=== PATIENT | male | born 1960 | race Caucasian/White ===

== ENCOUNTER → 2020-04-25 09:38 | Outpatient (BNVA) | payer SELFPAY | PROVIDERS: PCP Internal Medicine; Visit Provider Internal Medicine ==

== ENCOUNTER 2020-08-04 07:55 | Outpatient (REF) | payer BC, SELFPAY ==
[2020-08-04 09:04] LABS: Estimated Average Glucose 105 mg/dL; Hemoglobin A1c % 5.3 %
[2020-08-04 09:09] LABS: Alanine Aminotransferase 11 U/L (0-40); Albumin Level 4.1 g/dL (3.5-5.0); Alkaline Phosphatase 72 U/L (39-117); Aspartate Amino Transferase 15 U/L (5-37); Bilirubin Direct < 0.2 mg/dL (0.0-0.5); Bilirubin Total 0.3 mg/dL (0.0-1.0); Cholesterol 159 mg/dL; Glucose Fasting 92 mg/dL (60-99); HDL Cholesterol 43 mg/dL; Total Protein 6.8 g/dL (6.5-8.0); Triglycerides 416 mg/dL
[2020-08-04 10:22] LABS: Reflex LDLD? Yes
[2020-08-05 09:08] LABS: LDL Cholesterol Direct 74 mg/dL (<100)
== END 2020-08-04 07:56 | disposition home or self-care (01) ==
LOC: HO.LAB 07:55
PROVIDERS: PCP Internal Medicine; Visit Provider Internal Medicine
DX: R73.03 Prediabetes (principal); E78.00 Pure hypercholesterolemia, unspecified
CPT/HCPCS: 36415; 80061; 80076; 82947; 83036; 83721

== ENCOUNTER 2021-01-30 10:36 | Outpatient (REF) | payer BC, SELFPAY ==
[2021-01-30 10:39] LABS: MANUAL DIFF FLAG NO
[2021-01-30 11:20] LABS: Basophils Absolute Auto 0.1 X10*3/uL (0.0-0.2); Basophils Percent Auto 0.5 % (0-2); Eosinophils Absolute Auto 0.3 X10*3/uL (0.0-0.4); Eosinophils Percent Auto 3.3 % (0-4); Hematocrit 44.1 % (42-52); Hemoglobin 14.6 g/dl (14.0-18.0); Imm Gran Abs Auto 0.03 X10*3/uL (0.00-0.03); Imm Gran Pct Auto 0.3 % (0.0-0.4); Lymphocytes Absolute Auto 3.1 X10*3/uL (1.2-4.9); Lymphocytes Percent Auto 32.7 % (20-40); Mean Corpuscular HGB Conc 33.1 g/dl (31.0-36.0); Mean Corpuscular Hemoglobin 30.9 pg (27.0-33.0); Mean Corpuscular Volume 93.2 fL (80-98); Mean Platelet Volume 10.6 fL (9.4-12.4); Monocytes Absolute Auto 0.9 X10*3/uL (0.1-1.2); Neutrophils Absolute Auto 5.2 X10*3/uL (2.0-8.3); Neutrophils Percent Auto 54.2 % (45-73); Platelet Count 247 X10*3/uL (160-400); Red Blood Count 4.73 X10*6/uL (4.60-5.80); Red Cell Distribution Width 12.2 % (11.0-16.0); White Blood Count 9.6 X10*3/uL (4.8-10.8)
[2021-01-30 11:26] LABS: Estimated Average Glucose 105 mg/dL; Hemoglobin A1c % 5.3 %
[2021-01-30 11:33] LABS: Glucose Urine UA NEG (NEG); Leukocyte Esterase Urine NEG (NEG); Nitrite Urine NEG (NEG); Specific Gravity - Urine <= 1.005 (1.005-1.025); Urine Blood NEG (NEG); Urine Ketones NEG (NEG); Urine Protein NEG (NEG-TRACE)
[2021-01-30 11:51] LABS: Appearance Urine CLEAR; Color Urine YELLOW
[2021-01-30 12:00] LABS: Alanine Aminotransferase 17 U/L (0-40); Albumin Level 4.2 g/dL (3.5-5.0); Alkaline Phosphatase 64 U/L (39-117); Anion Gap 15 (12-20); Aspartate Amino Transferase 16 U/L (5-37); Bilirubin Total < 0.2 mg/dL (0.0-1.0); Blood Urea Nitrogen 13 mg/dL (9-16); Calcium 9.1 mg/dL (8.4-10.2); Carbon Dioxide 28 mmol/L (22-29); Chloride 101 mmol/L (96-108); Cholesterol 155 mg/dL; Estimated Glomerular Filt Rate > 60; Glucose Fasting 102 mg/dL (60-99); HDL Cholesterol 39 mg/dL; LDL Cholesterol Calculated 77 mg/dl; Potassium 3.9 mmol/L (3.3-5.1); Sodium 140 mmol/L (135-145); Total Protein 6.9 g/dL (6.5-8.0); Triglycerides 199 mg/dL
[2021-01-30 12:06] LABS: PSA,Total (Free>4and<10) 0.63 ng/mL (0.00-4.00)
[2021-01-30 12:10] LABS: Creatinine Urine 68.99 mg/dL; Microalbumin Urine < 5.0 mg/L
[2021-01-30 12:41] LABS: Reflex LDLD? No
== END 2021-01-30 10:37 | disposition home or self-care (01) ==
LOC: HO.LNP 10:36
PROVIDERS: Visit Provider Internal Medicine
DX: Z00.00 Encounter for general adult medical examination without abnormal findings (principal); Z12.5 Encounter for screening for malignant neoplasm of prostate; I10 Essential (primary) hypertension; R73.03 Prediabetes; E78.00 Pure hypercholesterolemia, unspecified
CPT/HCPCS: 80053; 80061; 81003; 82043; 83036; 84153; 85025

== ENCOUNTER → 2021-04-05 08:46 | Outpatient (BNVA) | payer SELFPAY | PROVIDERS: PCP Internal Medicine; Visit Provider Internal Medicine | DX: Z02.79 Encounter for issue of other medical certificate (principal) ==

== ENCOUNTER 2021-08-10 11:48 | Outpatient (REF) | payer MEDICARE, SELFPAY ==
[2021-08-10 12:31] LABS: Estimated Average Glucose 108 mg/dL; Hemoglobin A1c % 5.4 %
[2021-08-10 12:37] LABS: Alanine Aminotransferase 23 U/L (0-40); Alkaline Phosphatase 67 U/L (39-117); Aspartate Amino Transferase 37 U/L (5-37); Bilirubin Direct 0.2 mg/dL (0.0-0.5); Bilirubin Total 0.4 mg/dL (0.0-1.0); Cholesterol 173 mg/dL; Glucose Fasting 113 mg/dL (60-99); HDL Cholesterol 41 mg/dL; LDL Cholesterol Calculated 92 mg/dl; Total Protein 6.7 g/dL (6.5-8.0); Triglycerides 203 mg/dL
[2021-08-10 12:57] LABS: Reflex LDLD? No
== END 2021-08-10 11:49 | disposition home or self-care (01) ==
LOC: HO.LNP 11:48
PROVIDERS: Visit Provider Internal Medicine
DX: R73.03 Prediabetes (principal); E78.00 Pure hypercholesterolemia, unspecified
CPT/HCPCS: 80061; 80076; 82947; 83036

== ENCOUNTER 2021-10-04 08:51 | Outpatient (REF) | payer MEDICARE, SELFPAY ==
--- NOTE | ~2021-10-04 | XR_ITS ---
EXAMINATION: XR KNEES, STANDING AP XR KNEE, LEFT CLINICAL INFORMATION: Knee pain. COMPARISON: Standing AP knees and left knee 07/09/2016. TECHNIQUE: Standing AP view of both knees is performed. Additional axial patella and lateral views of the left knee are also included. FINDINGS: Left: There has been prior total knee arthroplasty. The hardware is intact. There is no fracture, dislocation, destructive process, or osteolysis. No periostitis. No definite suprapatellar effusion. Axial view patella shows no lateralization or tilting. Right: There is narrowing medial knee joint compartment with mild secondary genu varus. No erosive change or visible chondrocalcinosis. Normal bony mineralization. XR/XR knee standing BI IMPRESSION: Left: -Total knee arthroplasty. Hardware intact. No osteolysis. Right: -Degenerative changes medial compartment with joint narrowing and mild secondary genu varus.
--- NOTE | ~2021-10-04 | XR_ITS ---
EXAMINATION: XR KNEES, STANDING AP XR KNEE, LEFT CLINICAL INFORMATION: Knee pain. COMPARISON: Standing AP knees and left knee 07/09/2016. TECHNIQUE: Standing AP view of both knees is performed. Additional axial patella and lateral views of the left knee are also included. FINDINGS: Left: There has been prior total knee arthroplasty. The hardware is intact. There is no fracture, dislocation, destructive process, or osteolysis. No periostitis. No definite suprapatellar effusion. Axial view patella shows no lateralization or tilting. Right: There is narrowing medial knee joint compartment with mild secondary genu varus. No erosive change or visible chondrocalcinosis. Normal bony mineralization. XR/XR knee LT 2V IMPRESSION: Left: -Total knee arthroplasty. Hardware intact. No osteolysis. Right: -Degenerative changes medial compartment with joint narrowing and mild secondary genu varus.
== END 2021-10-04 08:52 | disposition home or self-care (01) ==
LOC: HO.HOSX 08:51
PROVIDERS: Visit Provider Orthopaedic Surgery
DX: M79.605 Pain in left leg (principal)
CPT/HCPCS: 73560; 73565; 99212

== ENCOUNTER 2021-10-30 16:20 | Outpatient (REF) | payer MEDICARE, SELFPAY ==
[2021-10-30 16:23] LABS: MANUAL DIFF FLAG NO
[2021-10-30 16:27] LABS: Basophils Absolute Auto 0.1 X10*3/uL (0.0-0.2); Basophils Percent Auto 0.6 % (0-2); Eosinophils Absolute Auto 0.2 X10*3/uL (0.0-0.4); Eosinophils Percent Auto 2.7 % (0-4); Hematocrit 43.5 % (42.0-52.0); Hemoglobin 14.9 g/dl (14.0-18.0); Imm Gran Abs Auto 0.02 X10*3/uL (0.00-0.03); Imm Gran Pct Auto 0.2 % (0.0-0.4); Lymphocytes Absolute Auto 2.6 X10*3/uL (1.2-4.9); Lymphocytes Percent Auto 31.6 % (20-40); Mean Corpuscular HGB Conc 34.3 g/dl (31.0-36.0); Mean Corpuscular Hemoglobin 32.2 pg (27.0-33.0); Mean Platelet Volume 10.6 fL (9.4-12.4); Monocytes Absolute Auto 0.6 X10*3/uL (0.1-1.2); Monocytes Percent Auto 7.5 % (2-11); Neutrophils Absolute Auto 4.6 x10*3/uL (2.0-8.3); Neutrophils Percent Auto 57.4 % (45-73); Platelet Count 261 X10*3/uL (160-400); Red Blood Count 4.63 X10*6/uL (4.60-5.80); Red Cell Distribution Width 12.2 % (11.0-16.0); White Blood Count 8.1 X10*3/uL (4.8-10.8)
[2021-10-30 16:39] LABS: Alanine Aminotransferase 11 U/L (0-40); Albumin Level 4.1 g/dL (3.5-5.0); Alkaline Phosphatase 67 U/L (39-117); Anion Gap 11 (12-20); Aspartate Amino Transferase 14 U/L (5-37); Bilirubin Total 0.2 mg/dL (0.0-1.0); Blood Urea Nitrogen 12 mg/dL (9-16); Calcium 9.1 mg/dL (8.4-10.2); Carbon Dioxide 27 mmol/L (22-29); Chloride 104 mmol/L (96-108); Estimated Glomerular Filt Rate > 60; Glucose Random 104 mg/dL (60-115); Potassium 4.2 mmol/L (3.3-5.1); Sodium 138 mmol/L (135-145); Total Protein 7.1 g/dL (6.5-8.0)
[2021-10-30 16:59] LABS: PSA,Total (Free>4and<10) 0.72 ng/mL (0.00-4.00); TSH reflex Free T4 1.49 uIU/mL (0.32-4.0)
== END 2021-10-30 16:21 | disposition home or self-care (01) ==
LOC: HO.LNP 16:20
PROVIDERS: Visit Provider Internal Medicine
DX: Z12.5 Encounter for screening for malignant neoplasm of prostate (principal); R63.0 Anorexia
CPT/HCPCS: 80053; 84153; 84443; 85025

== ENCOUNTER 2022-02-04 10:46 | Outpatient (REF) | payer MEDICARE, SELFPAY ==
[2022-02-04 10:50] LABS: MANUAL DIFF FLAG NO
[2022-02-04 12:10] LABS: Basophils Absolute Auto 0.1 X10*3/uL (0.0-0.2); Basophils Percent Auto 0.8 % (0-2); Eosinophils Absolute Auto 0.2 X10*3/uL (0.0-0.4); Eosinophils Percent Auto 3.1 % (0-4); Hemoglobin 14.6 g/dl (14.0-18.0); Imm Gran Abs Auto 0.02 X10*3/uL (0.00-0.03); Imm Gran Pct Auto 0.3 % (0.0-0.4); Lymphocytes Absolute Auto 2.5 X10*3/uL (1.2-4.9); Lymphocytes Percent Auto 33.8 % (20-40); Mean Corpuscular Hemoglobin 31.7 pg (27.0-33.0); Mean Corpuscular Volume 93.5 fL (80.0-98.0); Mean Platelet Volume 10.4 fL (9.4-12.4); Monocytes Absolute Auto 0.7 X10*3/uL (0.1-1.2); Monocytes Percent Auto 9.4 % (2-11); Neutrophils Absolute Auto 3.9 x10*3/uL (2.0-8.3); Neutrophils Percent Auto 52.6 % (45-73); Platelet Count 257 X10*3/uL (160-400); Red Cell Distribution Width 12.5 % (11.0-16.0); White Blood Count 7.5 X10*3/uL (4.8-10.8)
[2022-02-04 12:11] LABS: Appearance Urine CLEAR; Color Urine YELLOW; Glucose Urine UA NEG (NEG); Leukocyte Esterase Urine NEG (NEG); Nitrite Urine NEG (NEG); Specific Gravity - Urine 1.025 (1.005-1.025); Urine Blood NEG (NEG); Urine Ketones NEG (NEG); Urine Protein NEG (NEG-TRACE)
[2022-02-04 12:17] LABS: Estimated Average Glucose 100 mg/dL; Hemoglobin A1c % 5.1 %
[2022-02-04 12:33] LABS: Alanine Aminotransferase 41 U/L (0-40); Alkaline Phosphatase 65 U/L (39-117); Anion Gap 14 (12-20); Aspartate Amino Transferase 24 U/L (5-37); Bilirubin Total 0.4 mg/dL (0.0-1.0); Blood Urea Nitrogen 12 mg/dL (9-16); Calcium 8.6 mg/dL (8.4-10.2); Carbon Dioxide 27 mmol/L (22-29); Chloride 105 mmol/L (96-108); Cholesterol 151 mg/dL; Estimated Glomerular Filt Rate > 60; Glucose Fasting 112 mg/dL (60-99); HDL Cholesterol 43 mg/dL; LDL Cholesterol Calculated 85 mg/dl; Potassium 3.7 mmol/L (3.3-5.1); Sodium 142 mmol/L (135-145); Total Protein 6.5 g/dL (6.5-8.0); Triglycerides 117 mg/dL
[2022-02-04 12:34] LABS: PSA,Total (Free>4and<10) 0.73 ng/mL (0.00-4.00)
[2022-02-04 12:51] LABS: Creatinine Urine 141.58 mg/dL; Microalbum/Creatinine Ratio Ur 4.9 ug/mg cr
[2022-02-04 13:31] LABS: RBC Urine 0 /HPF (0); WBC Urine 0 /HPF (0-4)
== END 2022-02-04 10:47 | disposition home or self-care (01) ==
LOC: HO.LNP 10:46
PROVIDERS: Visit Provider Internal Medicine
DX: Z00.00 Encounter for general adult medical examination without abnormal findings (principal); I10 Essential (primary) hypertension; R73.03 Prediabetes; E78.00 Pure hypercholesterolemia, unspecified; Z12.5 Encounter for screening for malignant neoplasm of prostate
CPT/HCPCS: 80053; 80061; 81001; 82043; 83036; 84153; 85025

== ENCOUNTER 2022-02-18 09:16 | Day surgery (SDC) | payer MEDICARE, SELFPAY ==
[2022-02-12 13:32] VITALS: BMI 26.6
[2022-02-18 09:56] VITALS: BP 116/80; PULSE 77; RESP 16; TEMP 36.8; O2SAT 96
[2022-02-18] MEDS: Lactated Ringers 1,000 ML 50 ML IVCONT (09:57)
[2022-02-18] MEDS: Sodium Phosphate,Mono-Dibasic 133 ML ENEMA PR (09:57)
--- NOTE | 2022-02-18 09:58 | HO.ANESPROP2 ---
HPI - Anesthesia Eval Consult details Narrative: 61 yo male patient for colonoscopy PMFSH Active Problems Active Problems: All Active Problems (Updated 02/18/22 @ 09:42 by Safia Key RN) Pain in left leg (Acute) Polyarthralgia (Acute) Past Medical History Medical History Anxiety Asthma Degenerative arthritis Depression Hypercholesteremia Hypertension Loose left total knee arthroplasty Family History Family history of problems with anesthesia: No Surgical History Surgical History H/O colonoscopy H/O foot surgery History of surgery on arm History of total left knee replacement Hx of hand surgery Hx of knee surgery History of Problems with Anesthesia: No ('Woke up' during last colonoscopy- conscious sedation ) Social History Social History Patient Tobacco Use Status: Former Tobacco user Quit Date: 4 yrs ago Use of substances other than those prescribed or required for medical reasons: No Are you DNR?: No Advance Directives: No Advance Directives Information Provided: Yes Current occupational status: retired [id number] Allergies Allergy/AdvReac Type Severity Reaction Status Date / Time codeine [CODEINE] Allergy Intermediate ITCHING Verified 10/04/21 11:30 Active Medications: Current Medications Lactated Ringer's (Lr) 1,000 mls @ 50 mls/hr IVCONT .Q20H EUGENE Last Admin: 02/18/22 09:57 Dose: 50 mls/hr Sodium Biphosphate/Sodium Phosphate (Sodium Phosphate,[place]-Dibasic 133 Ml Enema) 133 ml RI ONCE PRN PRN Reason: Poor Colonoscopy Prep Results Last Admin: 02/18/22 09:57 Dose: 133 ml Home Medications Medication Instructions Recorded Confirmed Last Taken Type bupropion HCl 300 mg 24 hr tablet, 300 mg PO QAM 10/04/21 02/18/22 02/18/22 07:30 History extended release (Wellbutrin XL) gabapentin 300 mg capsule 300 mg PO DAILY 10/04/21 02/18/22 Unknown History irbesartan 300 1 tab PO DAILY 10/04/21 02/18/22 Unknown History mg-hydrochlorothiazide 12.5 mg tablet metoprolol succinate 50 mg PO DAILY 10/04/21 02/18/2222 07:30 History rosuvastatin 20 mg tablet 20 mg PO BEDTIME 10/04/21 02/18/22 Unknown History trazodone 50 mg tablet 100 mg PO BEDTIME PRN Insomnia 10/04/21 02/18/22 Unknown History clonazepam 2 mg tablet 1 tab PO TID 02/12/22 02/18/22 Unknown History albuterol sulfate 90 mcg/actuation 2 puff inhalation Q4-6H PRN 02/18/22 02/18/22 Unknown History aerosol inhaler Shortness Of Breath Exam Exam Date and Time: February 18, 2022 0958 Height,Weight and Vital Signs: Height 5 ft 9 in Weight 81.647 kg Last Vital Signs Temp 98.2 F 02/18/22 09:56 Pulse 77 02/18/22 09:56 Resp 16 02/18/22 09:56 BP 116/80 02/18/22 09:56 Pulse Ox 96 02/18/22 09:56 O2 Del Method 02/18/22 09:56 Airway Mallampati Class: II TM Dist: >3cm Neck ROM: Full Loose/Missing/Broken Teeth: No Heart: RRR Lungs: Bilateral wheezes Other: Patient states he 'feels congested and voice feels different'. Had his son's dog over the weekend. Will order respiratory treatment Assessment and Plan Assessment Anesthesia Assessment: Anesthesia Plan Discussed and Chart Reviewed Final Anesthetic Review Family History of Problems with Anesthesia: No History of Problems with Anesthesia: No ('Woke up' during last colonoscopy- conscious sedation ) NPO: Yes ASA Class: II Final Preanesthetic Review: No Changes in Pt Med Stat, Meds/Allgs Chart Reviewed, Consent Obtained/Reviewed and Anes Risks/Benef Reviewed Patient Risk: Intermediate Procedure Risk: Low Assessment/Block/Sedation in SS: Assess/Block/Sedation-SS Anesthetic Plan Anesthetic Plan: MAC: Disposition: Standard PACU
--- NOTE | 2022-02-18 10:21 | PC.NURSE ---
fleets x1 due to not much results with prep until this am. given at 0957. results at 1015 were moderate liquid clear to light abrams color.
[2022-02-18] MEDS: Albuterol Sulfate (0.083%) 2.5 MG/3 ML VIAL.NEB INHALE (10:22)
[2022-02-18 10:25] VITALS: PULSE 78; RESP 15; O2SAT 99
[2022-02-18 11:46] VITALS: BP 87/49; PULSE 85; RESP 16; TEMP 36.2; O2SAT 97
--- NOTE | 2022-02-18 11:50 | PM.OP ---
Brief Operative Note Date of Service: 02/18/22 Pre-op diagnosis: Screening Post-op diagnosis: other (Colon polyps) Procedure: Colonoscopy to the cecum with bx/removal of polyp, and cold snare polypectomy x 2 in the transverse colon Surgeon: Donny Winters Anesthesia: MAC Was an Manager Software used for this Procedure?: No Estimated blood loss (mL): 2.0 Pathology: other (A. Ascending colon polyp B. Transverse colon polyps) Condition: stable Disposition: PACU
[2022-02-18 12:04] VITALS: BP 110/62; PULSE 85; RESP 18; TEMP 36.2; O2SAT 94
--- NOTE | 2022-02-18 23:51 | OP_ITS ---
SURGEON: Donny Winters MD INDICATIONS: The patient presents for followup of colorectal cancer screening and personal history of tubular adenoma of the colon. Full consent was obtained from him for this, including risks of bleeding and perforation. PREOPERATIVE DIAGNOSIS: POSTOPERATIVE DIAGNOSIS: PROCEDURE PERFORMED: Colonoscopy to cecum with biopsy, removal of polyp, and cold snare polypectomy. ESTIMATED BLOOD LOSS: COMPLICATIONS: ANESTHESIA: Medications used; monitored anesthesia care. ASSISTANTS: SPECIMENS: PREOPERATIVE DIAGNOSES: Colorectal cancer screening and personal history of tubular adenoma of the colon. POSTOPERATIVE DIAGNOSES: Colorectal cancer screening and personal history of tubular adenoma of the colon, colon polyps, diverticulosis, and internal hemorrhoids. DESCRIPTION OF PROCEDURE: The patient was placed in the left lateral decubitus position. The digital rectal exam revealed no abnormalities. The Olympus videopediatric colonoscope was entered into the rectum and advanced easily to the cecum. Once in the cecum, I did identify normal-appearing cecal pouch with appendiceal orifice and a normal-appearing ileocecal valve. There was transillumination of light deep in the right lower quadrant. The entire cecum and ileocecal valve appeared normal. The scope was slowly withdrawn assessing all mucosal surfaces carefully. Preparation was excellent. In the proximal ascending colon, there was an approximately 3 mm polyp, which was biopsied and completely removed with cold biopsy forceps. In the transverse colon, there were 2 approximately 5 mm polyps, which were each removed by cold snare polypectomy and recovered by suction. The polypectomy sites appeared clean, without any sign of residual polyp nor significant bleeding. I did not visualize any other polyps, colitis, nor angiodysplasia. There was a mild amount of sigmoid diverticulosis. In the rectum, scope was retroflexed visualizing internal hemorrhoids, but no other pathology. The rectal mucosa appeared normal. The scope was straightened and withdrawn from the patient. He tolerated the procedure well and was returned to the recovery area in stable condition. IMPRESSION: 1. Colon polyps. 2. Diverticulosis. 3. Internal hemorrhoids. PLAN: The results of the biopsies will be checked. I would recommend a repeat colonoscopy in 5 years. He was advised not to use any aspirin or NSAIDs for 1 week. MD MERYL Vicente/STEVEL / [phone]
== END 2022-02-18 12:21 | disposition home or self-care (01) ==
PROVIDERS: PCP Internal Medicine; Visit Provider Internal Medicine
PROC: 0DJD8ZZ Inspection of Lower Intestinal Tract, Via Natural or Artificial Opening Endoscopic (ICD-10-PCS; CPT 45378; principal; 2022-02-18 10:30)
DX: Z12.11 Encounter for screening for malignant neoplasm of colon (principal); Z86.010 Personal history of colon polyps; D12.3 Benign neoplasm of transverse colon; K63.5 Polyp of colon; K57.30 Diverticulosis of large intestine without perforation or abscess without bleeding; K64.8 Other hemorrhoids; I10 Essential (primary) hypertension; E78.5 Hyperlipidemia, unspecified; Z79.899 Other long term (current) drug therapy; Z88.8 Allergy status to other drugs, medicaments and biological substances; Z96.652 Presence of left artificial knee joint; Z87.891 Personal history of nicotine dependence
CPT/HCPCS: 45385; 45380; 88305; 94640; J2250

== ENCOUNTER → 2022-03-28 13:47 | Outpatient (BNVA) | payer SELFPAY | PROVIDERS: PCP Internal Medicine; Visit Provider Internal Medicine | DX: Z02.79 Encounter for issue of other medical certificate (principal) ==

== ENCOUNTER 2022-08-06 10:36 | Outpatient (REF) | payer MEDICARE, SELFPAY ==
[2022-08-06 11:23] LABS: Estimated Average Glucose 100 mg/dL; Hemoglobin A1c % 5.1 %
[2022-08-06 11:36] LABS: Alanine Aminotransferase 17 U/L (0-40); Albumin Level 3.7 g/dL (3.5-5.0); Alkaline Phosphatase 60 U/L (39-117); Aspartate Amino Transferase 15 U/L (5-37); Bilirubin Direct 0.2 mg/dL (0.0-0.5); Bilirubin Total 0.5 mg/dL (0.0-1.0); Cholesterol 118 mg/dL; Glucose Fasting 100 mg/dL (60-99); HDL Cholesterol 37 mg/dL; LDL Cholesterol Calculated 59 mg/dl; Total Protein 5.9 g/dL (6.5-8.0); Triglycerides 114 mg/dL
[2022-08-06 11:52] LABS: Reflex LDLD? No
== END 2022-08-06 10:37 | disposition home or self-care (01) ==
LOC: HO.LNP 10:36
PROVIDERS: Visit Provider Internal Medicine
DX: E78.00 Pure hypercholesterolemia, unspecified (principal); R73.03 Prediabetes
CPT/HCPCS: 80061; 80076; 82947; 83036

== ENCOUNTER 2023-02-10 11:11 | Outpatient (REF) | payer MEDICARE, SELFPAY ==
[2023-02-10 11:19] LABS: MANUAL DIFF FLAG NO
[2023-02-10 11:28] LABS: Basophils Absolute Auto 0.1 X10*3/uL (0.0-0.2); Basophils Percent Auto 0.7 % (0-2); Eosinophils Absolute Auto 0.2 X10*3/uL (0.0-0.4); Hematocrit 45.6 % (42.0-52.0); Hemoglobin 15.4 g/dl (14.0-18.0); Imm Gran Abs Auto 0.04 X10*3/uL (0.00-0.03); Imm Gran Pct Auto 0.4 % (0.0-0.4); Lymphocytes Absolute Auto 3.1 X10*3/uL (1.2-4.9); Lymphocytes Percent Auto 29.4 % (20-40); Mean Corpuscular HGB Conc 33.8 g/dl (31.0-36.0); Mean Corpuscular Hemoglobin 31.7 pg (27.0-33.0); Mean Corpuscular Volume 93.8 fL (80.0-98.0); Mean Platelet Volume 10.5 fL (9.4-12.4); Monocytes Absolute Auto 0.8 X10*3/uL (0.1-1.2); Monocytes Percent Auto 7.7 % (2-11); Neutrophils Absolute Auto 6.3 x10*3/uL (2.0-8.3); Neutrophils Percent Auto 59.8 % (45-73); Platelet Count 325 X10*3/uL (160-400); Red Blood Count 4.86 X10*6/uL (4.60-5.80); Red Cell Distribution Width 12.4 % (11.0-16.0); White Blood Count 10.4 X10*3/uL (4.8-10.8)
[2023-02-10 11:29] LABS: Appearance Urine Clear; Color Urine Yellow; Glucose Urine UA Negative (Negative); Leukocyte Esterase Urine Negative (Negative); Nitrite Urine Negative (Negative); Specific Gravity - Urine <= 1.005 (1.005-1.025); Urine Blood Negative (Negative); Urine Ketones Negative (Negative); Urine Protein Negative (Neg-Trace)
[2023-02-10 11:34] LABS: Bacteria Urine None Seen (None Seen); Hyaline Casts Urine 0-2 /LPF (0-2); RBC Urine 0-2 /HPF (0-2); Squamous Epithelial Cell Urine 0-2 /HPF (0-2); WBC Urine 0-5 /HPF (0-5)
[2023-02-10 11:37] LABS: Estimated Average Glucose 94 mg/dL; Hemoglobin A1c % 4.9 % (<6.0)
[2023-02-10 11:38] LABS: Alanine Aminotransferase 23 U/L (0-40); Albumin Level 4.1 g/dL (3.5-5.0); Alkaline Phosphatase 62 U/L (39-117); Anion Gap 14 (12-20); Aspartate Amino Transferase 20 U/L (5-37); Bilirubin Total 0.4 mg/dL (0.0-1.0); Blood Urea Nitrogen 9 mg/dL (9-16); Calcium 9.9 mg/dL (8.4-10.2); Carbon Dioxide 26 mmol/L (22-29); Chloride 107 mmol/L (96-108); Cholesterol 133 mg/dL (<200); Estimated Glomerular Filt Rate > 60; Glucose Fasting 115 mg/dL (60-99); HDL Cholesterol 46 mg/dL (>40); LDL Cholesterol Calculated 69 mg/dL (<100); Potassium 4.2 mmol/L (3.3-5.1); Sodium 143 mmol/L (135-145); Total Protein 7.5 g/dL (6.5-8.0); Triglycerides 90 mg/dL (<150)
[2023-02-10 12:45] LABS: PSA,Total (Free>4and<10) 1.65 ng/mL (0.00-4.00)
[2023-02-10 12:51] LABS: Creatinine Urine 40.38 mg/dL; Microalbumin Urine < 5.0 mg/L
== END 2023-02-10 11:12 | disposition home or self-care (01) ==
LOC: HO.LNP 11:11
PROVIDERS: Visit Provider Internal Medicine
DX: Z00.00 Encounter for general adult medical examination without abnormal findings (principal); Z12.5 Encounter for screening for malignant neoplasm of prostate; I10 Essential (primary) hypertension; E78.00 Pure hypercholesterolemia, unspecified; R73.03 Prediabetes
CPT/HCPCS: 80053; 80061; 81001; 82043; 83036; 84153; 85025

== ENCOUNTER 2023-07-07 09:37 | Outpatient (REF) | payer MEDICARE, SELFPAY | END 2023-07-07 09:38 | disposition home or self-care (01) | LOC: HO.HOSX 09:37 | PROVIDERS: Visit Provider Orthopaedic Surgery | DX: Z13.89 Encounter for screening for other disorder (principal) ==

== ENCOUNTER 2023-08-08 07:19 | Outpatient (REF) | payer MEDICARE, SELFPAY ==
[2023-08-08 08:17] LABS: Estimated Average Glucose 105 mg/dL; Hemoglobin A1c % 5.3 % (<6.0)
[2023-08-08 08:24] LABS: Alanine Aminotransferase 34 U/L (0-40); Alkaline Phosphatase 56 U/L (39-117); Aspartate Amino Transferase 23 U/L (5-37); Bilirubin Direct 0.2 mg/dL (0.0-0.5); Bilirubin Total 0.4 mg/dL (0.0-1.0); Cholesterol 156 mg/dL (<200); Glucose Fasting 102 mg/dL (60-99); HDL Cholesterol 49 mg/dL (>40); LDL Cholesterol Calculated 87 mg/dL (<100); Triglycerides 102 mg/dL (<150)
[2023-08-08 08:34] LABS: Reflex LDLD? No
== END 2023-08-08 07:20 | disposition home or self-care (01) ==
LOC: HO.LAB 07:19
PROVIDERS: PCP Internal Medicine; Visit Provider Internal Medicine
DX: E78.00 Pure hypercholesterolemia, unspecified (principal); R73.09 Other abnormal glucose
CPT/HCPCS: 36415; 80061; 80076; 82947; 83036

== ENCOUNTER 2024-02-09 10:34 | Outpatient (REF) | payer MEDICARE, SELFPAY ==
[2024-02-09 10:38] LABS: MANUAL DIFF FLAG NO
[2024-02-09 11:08] LABS: Basophils Absolute Auto 0.1 X10*3/uL (0.0-0.2); Basophils Percent Auto 1.2 % (0-2); Eosinophils Absolute Auto 0.4 X10*3/uL (0.0-0.4); Eosinophils Percent Auto 4.7 % (0-4); Hematocrit 41.3 % (42.0-52.0); Imm Gran Abs Auto 0.02 X10*3/uL (0.00-0.03); Imm Gran Pct Auto 0.3 % (0.0-0.4); Lymphocytes Percent Auto 39.5 % (20-40); Mean Corpuscular HGB Conc 33.9 g/dl (31.0-36.0); Mean Corpuscular Hemoglobin 31.9 pg (27.0-33.0); Mean Corpuscular Volume 94.1 fL (80.0-98.0); Mean Platelet Volume 10.3 fL (9.4-12.4); Monocytes Absolute Auto 0.8 X10*3/uL (0.1-1.2); Monocytes Percent Auto 10.6 % (2-11); Neutrophils Absolute Auto 3.4 x10*3/uL (2.0-8.3); Neutrophils Percent Auto 43.7 % (45-73); Platelet Count 259 X10*3/uL (160-400); Red Blood Count 4.39 X10*6/uL (4.60-5.80); Red Cell Distribution Width 12.8 % (11.0-16.0); White Blood Count 7.7 X10*3/uL (4.8-10.8)
[2024-02-09 11:22] LABS: Estimated Average Glucose 103 mg/dL; Hemoglobin A1c % 5.2 % (<6.0)
[2024-02-09 11:28] LABS: Appearance Urine Clear; Color Urine Yellow; Glucose Urine UA Negative (Negative); Leukocyte Esterase Urine Negative (Negative); Nitrite Urine Negative (Negative); Specific Gravity - Urine 1.015 (1.005-1.025); Urine Blood Negative (Negative); Urine Ketones Negative (Negative); Urine Protein Negative (Neg-Trace)
[2024-02-09 11:33] LABS: Alanine Aminotransferase 20 U/L (0-40); Albumin Level 3.9 g/dL (3.5-5.0); Alkaline Phosphatase 58 U/L (39-117); Anion Gap 11 (12-20); Aspartate Amino Transferase 18 U/L (5-37); Bilirubin Total 0.2 mg/dL (0.0-1.0); Blood Urea Nitrogen 19 mg/dL (9-16); Calcium 9.1 mg/dL (8.4-10.2); Carbon Dioxide 30 mmol/L (22-29); Chloride 103 mmol/L (96-108); Cholesterol 150 mg/dL (<200); Estimated Glomerular Filt Rate > 60; Glucose Fasting 104 mg/dL (60-99); HDL Cholesterol 44 mg/dL (>40); LDL Cholesterol Calculated 65 mg/dL (<100); Potassium 4.2 mmol/L (3.3-5.1); Sodium 140 mmol/L (135-145); Total Protein 6.8 g/dL (6.5-8.0); Triglycerides 209 mg/dL (<150)
[2024-02-09 11:35] LABS: Bacteria Urine None Seen (None Seen); Hyaline Casts Urine 0-2 /LPF (0-2); RBC Urine 0-2 /HPF (0-2); Squamous Epithelial Cell Urine 0-2 /HPF (0-2); WBC Urine 0-5 /HPF (0-5)
[2024-02-09 11:42] LABS: PSA,Total (Free>4and<10) 0.79 ng/mL (0.00-4.00)
[2024-02-09 11:43] LABS: Creatinine Urine 84.47 mg/dL; Microalbumin Urine < 5.0 mg/L
== END 2024-02-09 10:35 | disposition home or self-care (01) ==
LOC: HO.LNP 10:34
PROVIDERS: Visit Provider Internal Medicine
DX: Z00.00 Encounter for general adult medical examination without abnormal findings (principal); I10 Essential (primary) hypertension; E78.00 Pure hypercholesterolemia, unspecified; R73.09 Other abnormal glucose; Z12.5 Encounter for screening for malignant neoplasm of prostate
CPT/HCPCS: 80053; 80061; 81001; 82043; 82570; 83036; 84153; 85025

== ENCOUNTER 2024-08-16 10:07 | Outpatient (REF) | payer MEDICARE, SELFPAY ==
[2024-08-16 12:04] LABS: Alanine Aminotransferase 25 U/L (0-40); Albumin Level 3.9 g/dL (3.5-5.0); Alkaline Phosphatase 69 U/L (39-117); Aspartate Amino Transferase 40 U/L (5-37); Bilirubin Direct 0.1 mg/dL (0.0-0.5); Bilirubin Total 0.3 mg/dL (0.0-1.0); Cholesterol 167 mg/dL (<200); HDL Cholesterol 56 mg/dL (>40); LDL Cholesterol Calculated 78 mg/dL (<100); Total Protein 7.2 g/dL (6.5-8.0); Triglycerides 169 mg/dL (<150)
--- OUTSIDE RECORDS SUMMARY | 2024-08-16 12:39 | XMS_ITS | Clinical Summary ---
Author Organization [facility] Address [address] [place] [address] Care Team Providers Care Towel Rolling Machine Operator Name Role Phone Unavailable Primary Care Provider Unavailabl e Social History Tobacco Use Types Packs/Day Years Used Date Smoking Tobacco: Never Assessed Sex and Gender Information Value Date Recorded Sex Assigned at Not on file Gender Identity Not on file Sexual Orientation Not on file Plan of Treatment Not on file
--- OUTSIDE RECORDS SUMMARY | 2024-08-16 12:39 | XMS_ITS ---
Author Organization Kyaw Fishman MD Address [address] [place] [phone] Care Team Providers Care Lead Instructor/Flight Attendant Name Role Phone Kyaw Fishman Primary Care Provider REASON FOR VISIT RF Gabapentin Medications Medication SIG (Take, Route, Fr equency, Duration) Notes Start Date End Date Status Gabapentin 300 MG TAKE 1 CAPSULE BY [facility] THREE TIMES DAILY for 30 Active Encounters Encounter Location Date Provider Diagnosis Kyaw Fishman MD 10 [facility] [address] [place] [phone] 08/12/2024 Kyaw Fishman Plan Of Treatment Medication Medication Name Sig Start Date Stop Date Notes Gabapentin 300 MG TAKE 1 CAPSULE BY [facility] THREE TIMES DAILY for 30 Next Appt Details Provider Name:Kyaw thurston, 08/20/2024 10:15:00 AM, [address] [place] [address], [address] [place] [address], [phone], Provider Name:Kyaw thurston, 02/11/2025 07:15:00 AM, [address] [place] [address], [address], [phone], Provider Name:Kyaw Kobe Rigoeunice karena, 02/17/2025 09:30:00 AM, [address], [address], [place], [phone], Progress Notes * Kamran GAUTAMDOB: 9 (64 yo M)Acc No.[id number]:08/12/2024 Patient:?Kamran GAUTAM :1960???Age:64 Y???Sex:Male Address:[address] [place] [id number] * Refills? Refill Gabapentin Capsule, 300 MG, 90 Capsule, TAKE 1 CAPSULE BY MOUTH THREE TIMES DAILY, 30, Refills=12 * true * Date:? Generated for Jennifer germain/Henrry/Kipsmitting on:?08/16/2024 12:39 PM EST
--- OUTSIDE RECORDS SUMMARY | 2024-08-16 12:39 | XMS_ITS ---
Author Organization Kyaw Fishman MD Address [address] [place] [phone] Care Team Providers Care Curriculum Designer Name Role Phone Kyaw Fishman Primary Care Provider [phone] REASON FOR VISIT FLU SHOT Encounters Encounter Location Date Provider Diagnosis Kyaw Fishman MD 10 [facility] [address] [place] [phone] 03/15/2024 Kyaw Fishman Plan Of Treatment Next Appt Details Provider Name:Kyaw thurston, 08/20/2024 10:15:00 AM, [address] [place] [address], [address] [place] [address], [phone], Provider Name:Kyaw thurston, 02/11/2025 07:15:00 AM, [address] [place] [address], [address], [phone], Provider Name:Kyaw thurston, 02/17/2025 09:30:00 AM, [address] [place] [address], [address], [phone], Progress Notes * Kamran GAUTAMDOB: (64 yo M)Acc No.[id number]:03/15/2024 Progress Note Patient:?Kamran GAUTAM Provider:?Kyaw Fishman MD :1960???Age:63 Y???Sex:Male Isaiah e:03/15/2024 Address:[address] [place], [place] [phone] Subjective: * Chief Complaints: * ???1. FLU SHOT. * Medical History:? Objective: * Vitals:? Assessment: Plan: * Treatment: * * The named appointment provid er may or may not be the originator of this progress note, and it is not deemed complete until electronically signed by the appointment provider. Sign off status: Pending * Provider:?Kyaw Fishman MD Date:?0 03/15/2024 Generated for Jennifer germain/Henrry/Stephanieitting on:?08/16/2024 12:39 PM EST
--- OUTSIDE RECORDS SUMMARY | 2024-08-16 12:39 | XMS_ITS ---
Author Organization Kyaw Fsihman MD Address [address] [place] [phone] Care Team Providers Care Cash Poster Name Role Phone Kyaw Fishman Primary Care Provider [phone] REASON FOR VISIT FASTING LIPIDS Encounters Encounter Location Date Provider Diagnosis Kyaw Fishman MD [address] [place] [phone] 08/16/2024 Kyaw Fishman Pure hypercholestero lemia E78.00 and Moderate episode of recurrent major depressive disorder F33.1 Assessments Encounter Date Diagnosis (ICD Code) Assessment Notes Treatment Notes Treatment Clinical Notes Section Notes 08/16/2024 Pure hypercholesterolemia (ICD-10 - E78.00) 08/16/2024 Moderate episode of recurrent major depressive disorder (ICD-10 - F33.1) Plan Of Treatment Pending Test Test Name Order Date Liver Panel 08/16/2024 Lipid Panel with Reflex 08/16/2024 Testosterone, Free/Total 08/16/2024 Next Appt Details Provider Name:Kyaw thurston, 08/20/2024 10:15:00 AM, [address], [address], [place], [place], [phone], Provider Name:Kyaw West ier, 02/11/2025 07:15:00 AM, [address], [address], [place], [phone], Provider Name:Kyaw West [place], 02/17/2025 09:30:00 AM, [address], [address], [place], [phone], Progress Notes * Kamran GAUTAMDOB: (64 yo M)Acc No.[id number]:08/16/2024 Progress Note Patient:?Kamran GAUTAM Provider:?Kyaw Fishman MD :1960???Age:64 Y???Sex:Male Isaiah e:08/16/2024 Address:[address] [place], [place] [phone] Subjective: * Chief Complaints: * ???1. FASTING LIPIDS. * Medical History:? Objective: * Vitals:? Assessment: * Assessment: 1.?Pure hypercholesterolemia - E78.00 (Primary)???2.?Moderate episode of recurrent major depressive disorder - F33.1??? Plan: * Treatment: 2.?Moderate episode of recur rent major depressive disorder?LAB: Testosterone, Free/Total * * The named appointment provid er may or may not be the originator of this progress note, and it is not deemed complete until electronically signed by the appointment provider. Sign off status: Pending * Provider:?Kyaw Fishman MD Date:?0 08/16/2024 Generated for Daniellei jessa/Henrry/eTransmitting on:?08/16/2024 12:39 PM EST
[2024-08-16 13:13] LABS: Reflex LDLD? No
== END 2024-08-16 10:08 | disposition home or self-care (01) ==
LOC: HO.LNP 10:07
PROVIDERS: Visit Provider Internal Medicine
DX: E78.00 Pure hypercholesterolemia, unspecified (principal)
CPT/HCPCS: 80061; 80076

== ENCOUNTER 2024-08-30 12:02 | Outpatient (REF) | payer MEDICARE, SELFPAY ==
--- OUTSIDE RECORDS SUMMARY | 2024-08-30 13:43 | XMS_ITS ---
Author Organization Kyaw Fishman MD Address [address] [place] [phone] Care Team Providers Care Knitting Tester Name Role Phone Kyaw Fishman Primary Care Provider REASON FOR VISIT Testosterone Encounters Encounter Location Date Provider Diagnosis Kyaw Fishman MD [address] [place] [phone] 08/30/2024 Kyaw Fishman Moderate episode of recurrent major depressive disorder F33.1 Assessments Encounter Date Diagnosis (ICD Code) Assessment Notes Treatment Notes Treatment Clinical Notes Section Notes 08/30/2024 Moderate episode of recurrent major depressive disorder (ICD-10 - F33.1) Plan Of Treatment Pending Test Test Name Order Date Testosterone, Free/Total 08/30/2024 Next Appt Details Provider Name:Kyaw thurston, 02/11/2025 07:15:00 AM, [address] [place] [address], [address], [phone], Provider Name:Kyaw thurston, 02/17/2025 09:30:00 AM, 10 [facility], [address] [place] [address], [phone], Progress Notes * Kamran GAUTAMDOB: (64 yo M)Acc No.[id number]:08/30/2024 Progress Note Patient:Kamran ANTONIO Provider:?Kyaw Fishman MD :1960???Age:64 Y???Sex:Male Isaiah e:08/30/2024 Address:[address] [place], [place] [phone] Subjective: * Chief Complaints: * ???1. Testosterone. * Medical History:? Objective: * Vitals:? Assessment: * Assessment: 1.?Moderate episode of recur rent major depressive disorder - F33.1 (Primary)??? Plan: * Treatment: * Procedure Codes:?30027 VENIP UNCT, ROUTINE* * * The named appointment provid er may or may not be the originator of this progress note, and it is not deemed complete until electronically signed by the appointment provider. Sign off status: Pending * Provider:?Kyaw Fishman MD Date:?0 08/30/2024 Generated for Jennifer germain/Henrry/Kipsmitting on:?08/30/2024 01:42 PM EDT
--- OUTSIDE RECORDS SUMMARY | 2024-08-30 13:43 | XMS_ITS ---
Author Organization Kyaw Fishman MD Address [address] [place], [place] [phone] Care Team Providers Care Clip Baker Name Role Phone Kyaw Fishman Primary Care Provider Results Component Value Reference Range Notes Liver Panel Reviewed date:08/16/2024 05:10:00 PM Interpretation: Performing Lab:[facility], [address] [place] [phone] Notes/Report: Bilirubin Total 0.3 0.0-1.0 mg/dL Bilirubin Direct 0.1 0.0-0.5 mg/dL Aspartate Amino Transferase 40 5-37 U/L Alanine Aminotransferase 25 0-40 U/L Total Protein 7.2 6.5-8.0 g/dL Albumin Level 3.9 3.5-5.0 g/dL Alkaline Phosphatase 69 39-117 U/L Lipid Panel with Reflex Reviewed date:08/16/2024 05:26:20 PM Interpretation: Performing Lab:[facility], [address] [place] [phone] Notes/Report: Triglycerides 169 <150 mg/dL Desirable Triglyceride: less than 150 mg/dL Borderline High Triglyceride 150-199 mg/dL High Triglyceride: 200-499 mg/dL Very High Triglyceride: greater than or equal to 5OO mg/dL Cholesterol 167 <200 mg/dL Desirable Cholesterol: less than 200 mg/dL Borderline High Cholesterol: 200-239 mg/dL High Cholesterol: greater than 239 mg/dL LDL Cholesterol Calculated 78 <100 mg/dL Desirable LDL: less than 100 mg/dL Near Optimal/Above Optimal LDL: 110-129 mg/dL Borderline High LDL: 130-159 mg/dL High LDL: 160-189 mg/dL Very High LDL: greater than or equal to 190 mg/dL HDL Cholesterol 56 >40 mg/dL Desirable HDL: greater than 40 mg/dL Note: This HDL assay may give artificially low results in patients with liver disease. REASON FOR VISIT FASTING LIPIDS Encounters Encounter Location Date Provider Diagnosis Kyaw Fishman MD [address] [place] [phone] 08/16/2024 Kyaw Fishman Pure hypercholestero lemia E78.00 and Moderate episode of recurrent major depressive disorder F33.1 Assessments Encounter Date Diagnosis (ICD Code) Assessment Notes Treatment Notes Treatment Clinical Notes Section Notes 08/16/2024 Pure hypercholesterolemia (ICD-10 - E78.00) 08/16/2024 Moderate episode of recurrent major depressive disorder (ICD-10 - F33.1) Plan Of Treatment Pending Test Test Name Order Date Testosterone, Free/Total 08/16/2024 Next Appt Details Provider Name:Kyaw thurston, 02/11/2025 07:15:00 AM, [address] [place] [address], [address], [phone], Provider Name:Kyaw West ier, 02/17/2025 09:30:00 AM, [address] [place] [address], [address], [phone], Progress Notes * RIKAMARILUKamranDOB: (64 yo M)Acc No.[id number]:08/16/2024 Progress Note Patient:?Kamran GAUTAM Provider:?Kyaw Fishman MD :1960???Age:64 Y???Sex:Male Isaiah e:08/16/2024 [facility] Subjective: * Chief Complaints: * ???1. FASTING LIPIDS. * Medical History:? Objective: * Vitals:? Assessment: * Assessment: 1.?Pure hypercholesterolemia - E78.00 (Primary)???2.?Moderate episode of recurrent major depressive disorder - F33.1??? Plan: * Treatment: 2.?Moderate episode of recur rent major depressive disorder?LAB: Testosterone, Free/Total * Procedure Codes:?78530 VENIP UNCT, ROUTINE* * * The named appointment provid er may or may not be the originator of this progress note, and it is not deemed complete until electronically signed by the appointment provider. Sign off status: Pending * Provider:?Kyaw Fishman MD Date:?0 08/16/2024 Generated for Jennifer germain/Henrry/Stephanieitting on:?08/30/2024 01:42 PM EDT
--- OUTSIDE RECORDS SUMMARY | 2024-08-30 13:43 | XMS_ITS ---
Author Organization Kyaw Fishman MD Address [address] [place], [place] [phone] Care Team Providers Care Metal Furniture Assembler Name Role Phone Kyaw Fishman Primary Care Provider Allergies Allergen (clinical drug ingredient) Drug/Non Drug Allergy documented on EMR Reaction Allergy Type Onset Date Status codeine codeine (uncoded) itch Allergy Ac tive Results Component Value Reference Range Notes Hemoglobin A1c Reviewed date:08/20/2024 10:12:39 AM Interpretation: Performing Lab: Notes/Report: Value 5.1 Glucose, finger stick Reviewed date:08/20/2024 10:09:11 AM Interpretation: Performing Lab: Notes/Report: Value 109 REASON FOR VISIT 6 MO F/U Medications Medication SIG (Take, Route, Frequency, Duration) Notes Start Date End Date Status KlonoPIN 2 MG one tab Orally 2 jacklyn es a day Active buPROPion HCl ER (XL) 300 MG 1 tablet in the morning Orally Once a day Active Rosuvastatin Calcium 20 mg TAKE 1 TABLET DAILY AT BEDTIME Active Diprolene AF 0.05 % 1 application Externally Once a day for 30 days 08/30/2021 Active Metoprolol Succinate ER 50 mg TAKE 1 TABLET DAILY Active Sildenafil Citrate 100 mg TAKE ONE-HALF (1/2) TABLET DAILY NEEDED Active Gabapentin 300 MG TAKE 1 CAPSULE BY [facility] THREE TIMES DAILY for 30 Active Irbesartan-hydroCHLOROthi azide 300-12.5 mg TAKE 1 TABLET DAILY Act stacy ProAir HFA 108 (90 Base) MCG/ACT INHALE 2 PUFFS EVERY 4 HOURS NEEDED Not-Taking Amoxicillin 500 MG 1 capsule Orally charles ry 6 hours Not-Taking Albuterol Sulfate HFA 108 (90 Base) MCG/ACT USE 1 INHALATION EVERY 4 HOURS NEEDED Active Vital Signs Blood pressure systolic 132 mm Hg 08/20/19 25 Blood pressure diastolic 80 mm Hg 025 Height 68.5 in 08/20/2024 Weight 180 lbs 08/20/2024 BMI 26.97 kg/m2 08/20/2024 weight is up 6 pounds since 02-16-24 Encounters Encounter Location Date Provider Diagnosis Kyaw Fishman MD [address] [place] [address] [place] [phone] 08/20/2024 Kyaw Fishman Prediabetes R73.09 ; Dysthymia F34.1 ; Essential hypertension I10 and Pure hypercholesterolemia E78.00 Assessments Encounter Date Diagnosis (ICD Code) Assessment Notes Treatment Notes Treatment Clinical Notes Section Notes 08/20/2024 Prediabetes (ICD-10 - R73.09) doing well, stable, no need for medication at this time 08/20/2024 Dysthymia (ICD-10 - F34.1) going to get ketamine in [place] 08/20/2024 Essential hypertensi on (ICD-10 - I10) stable, will continue current regiment 08/20/2024 Pure hypercholesterolemia (ICD-10 - E78.00) stable, will contnue current regiment Plan Of Treatment Medication Medication Name Sig Start Date Stop Date Notes Rosuvastatin Calcium 20 mg TAKE 1 TABLET DAILY AT BEDTIME Metoprolol Succinate ER 50 mg TAKE 1 TABLET DAILY Irbesartan-hydroCHLOROthiazi de 300-12.5 mg TAKE 1 TABLET DAILY Treatment Notes Assessment Notes Prediabetes doing well, stable, no need for medication at this time Dysthymia going to get ketamin e in [place] Essential hypertension stable, will cont inue current regiment Pure hypercholesterolemia stable, will c ontnue current regiment Next Appt Details Provider Name:Kyaw West ier, 02/11/2025 07:15:00 AM, [address], [address], [place], [phone], Provider Name:Kyaw West ier, 02/17/2025 09:30:00 AM, [address], [address], [place], [place], [phone], Progress Notes * Kamran GAUTAMDOB: (64 yo M)Acc No.[id number]:08/20/2024 Progress Notes Patient:?Kamran GAUTAM Provider:?Kyaw Fishman MD :1960???Age:64 Y???Sex:Male Isaiah e:08/20/2024 Address:[address] [place], [place] [phone] Subjective: * Chief Complaints: * ???6 MO F/U * HPI: ???Symptom(s):?patient is a 64 yo male here for 6 month follow up / anxiety is good today.has had ketamine infusion. is going to get ketamine spray. is going to dr office for it. * ROS:?General/Constitutional:?Denies?Chills.?Denies?Fatigue.?Denies?Fever.?Denies?Headache.?ENT:?Patient denies?decreased sense of smell, any loss of taste, sore throat.?Denies?Sore throat.?Respiratory:?Denies?Cough.?Denies?Shortness of breath at rest.?Denies?Shortness of breath with exertion.?Gastrointestinal:?Denies?Diarrhea.?Denies?Nausea.?Musculoskeletal:?Patient denies?muscle aches.?Peripheral Vascular:?Patient denies?red and blue toes.? * Medical History:? * Surgical History:? * Hospitalization/Major Diagno stic Procedure:? * Medications:?TakingDiprolene AF 0.05 % Cream 1 application Externally Once a day KlonoPIN 2 MG Tablet one tab Orally 2 times a day buPROPion HCl ER (XL) 300 MG Tablet Extended Release 24 Hour 1 tablet in the morning Orally Once a day Irbesartan-hydroCHLOROthiazide 300-12.5 mg Tablet TAKE 1 TABLET DAILY Metoprolol Succinate ER 50 mg Tablet Extended Release 24 Hour TAKE 1 TABLET DAILY Rosuvastatin Calcium 20 mg Tablet TAKE 1 TABLET DAILY AT BEDTIME Albuterol Sulfate HFA 108 (90 Base) MCG/ACT Aerosol Solution USE 1 INHALATION EVERY 4 HOURS NEEDED Sildenafil Citrate 100 mg Tablet TAKE ONE-HALF (1/2) TABLET DAILY NEEDED Gabapentin 300 MG Capsule TAKE 1 CAPSULE BY MOUTH THREE TIMES DAILY Taking Diprolene AF 0.05 % Cream 1 application Externally Once a day Taking KlonoPIN 2 MG Tablet one tab Orally 2 times a day Taking buPROPion HCl ER (XL) 300 MG Tablet Extended Release 24 Hour 1 tablet in the morning Orally Once a day Taking Irbesartan-hydroCHLOROthiazide 300-12.5 mg Tablet TAKE 1 TABLET DAILY Taking Metoprolol Succinate ER 50 mg Tablet Extended Release 24 Hour TAKE 1 TABLET DAILY Taking Rosuvastatin Calcium 20 mg Tablet TAKE 1 TABLET DAILY AT BEDTIME Taking Albuterol Sulfate HFA 108 (90 Base) MCG/ACT Aerosol Solution USE 1 INHALATION EVERY 4 HOURS NEEDED Taking Sildenafil Citrate 100 mg Tablet TAKE ONE-HALF (1/2) TABLET DAILY NEEDED Taking Gabapentin 300 MG Capsule TAKE 1 CAPSULE BY MOUTH THREE TIMES DAILY Not-Taking/PRNProAir HFA 108 (90 Base) MCG/ACT Aerosol Solution INHALE 2 PUFFS EVERY 4 HOURS NEEDED Amoxicillin 500 MG Capsule 1 capsule Orally every 6 hours Medication List reviewed and reconciled with the patientNot-Taking/PRN ProAir HFA 108 (90 Base) MCG/ACT Aerosol Solution INHALE 2 PUFFS EVERY 4 HOURS NEEDED Not-Taking/PRN Amoxicillin 500 MG Capsule 1 capsule Orally every 6 hours Medication List reviewed and reconciled with the patient * Allergies:?codeine: itchyes[ Allergies Verified] Objective: * Vitals:?Ht: 68.5, Wt: 180, B OR:26.97, BP:132/80, Wt-k.65. weight is up 6 pounds since 02-16-24. * ???Past Orders: ???Lab:Liver Panel (Order Da te - 08/16/2024) (Collection Date & Time - 08/16/2024 10:07 AM) ? Value Reference Range ?Bilirubin Total 0.3 0.0- 1.0 - mg/dL ?Bilirubin Direct 0.1 0.0 -0.5 - mg/dL ?Aspartate Amino Transferase 40 H 5-37 - U/L ?Alanine Aminotransferase 25 0-40 - U/L ?Total Protein 7.2 6.5-8. 0 - g/dL ?Albumin Level 3.9 3.5-5. 0 - g/dL ?Alkaline Phosphatase 69 39-117 - U/L ???Lab:Lipid Panel with Refl ex (Order Date - 08/16/2024) (Collection Date & Time - 08/16/2024 10:07 AM) ? Value Reference Range ?Triglycerides 169 H <150 - mg/dL ?Cholesterol 167 <200 - m g/dL ?LDL Cholesterol Calculated 78 <100 - mg/dL ?HDL Cholesterol 56 >40 - mg/dL Assessment: * Assessment: 1.?Prediabetes - R73.09 (Milena salomon)???2.?Dysthymia - F34.1???3.?Essential hypertension - I10???4.?Pure hypercholesterolemia - E78.00??? Plan: * Treatment: ? Value Reference Range ?Value 5.1 ?LAB: Glucose, finger stick (Collection Date & Time - 08/20/2024)* ? Value Reference Range ?Value 109 Notes: doing well, stable, no need for medication at this time??2.?Dysthymia? Notes: going to get ketamine in [place]??3.?Essential hypertension? Continue Irbesartan-hydroCHLOROthiazide Tablet, 300-12.5 mg, TAKE 1 TABLET DAILY;?Continue Metoprolol Succinate ER Tablet Extended Release 24 Hour, 50 mg, TAKE 1 TABLET DAILY.?? Notes: stable, will continue current regiment??4.?Pure hypercholesterolemia? Continue Rosuvastatin Calcium Tablet, 20 mg, TAKE 1 TABLET DAILY AT BEDTIME.?? Notes: stable, will contnue current regiment?? * Procedure Codes:?03190 ASSAY , GLUCOSE, BLOOD QUANT, Modifiers: QW 30233 GLYCATED HEMOGLOBIN TEST, Modifiers: QW * * Sign off status: Completed true * Provider:?Kyaw Fishman MD Date:?0 08/20/2024 Generated for Jennifer germain/Henrry/eTmichaelsmitting on:?08/30/2024 01:42 PM EDT History and Physical Notes * HPI (History of Present Illness) Category Sub-Category Detail Notes Category Not es Symptom(s) patient is a 64 yo male here for 6 month follow up / anxiety is good today.has had ketamine infusion. is going to get ketamine spray. is going to dr office for it.
--- OUTSIDE RECORDS SUMMARY | 2024-08-30 13:43 | XMS_ITS | Clinical Summary ---
Author Organization [facility] Address [address] [place] [address] Care Team Providers Care Certified Peer Specialist Name Role Phone Unavailable Primary Care Provider Unavailabl e Social History Tobacco Use Types Packs/Day Years Used Date Smoking Tobacco: Never Assessed Sex and Gender Information Value Date Recorded Sex Assigned at Not on file Gender Identity Not on file Sexual Orientation Not on file Plan of Treatment Not on file
[2024-09-06 23:44] LABS: Testosterone, Total 667 ng/dL (250-1100)
== END 2024-08-30 12:03 | disposition home or self-care (01) ==
LOC: HO.LNP 12:02
PROVIDERS: Visit Provider Internal Medicine
DX: F33.1 Major depressive disorder, recurrent, moderate (principal)
CPT/HCPCS: 84402; 84403

== ENCOUNTER 2024-12-22 14:12 | Outpatient (REF) | payer MEDICARE, SELFPAY ==
--- NOTE | ~2024-12-22 | US_ITS ---
CLINICAL HISTORY: SUBCUTANEOUS NODULE US of the posterior neck Comparison: None provided Findings: In the area of the patient's lump is a circumscribed hypoechoic 1.0 x 0.9 x 0.6 cm mass with distal acoustic enhancement suggesting a cystic component. There is a questionable faint tract from the mass to the skin surface raising possibility of a sebaceous cyst. There are no other cystic or solid masses in the areas scanned. Impression: 1. Possible sebaceous cyst. Clinical follow-up recommended. [employer] TI-RADS Categories TR1 and TR2 nodules do not have follow-up recommendations TR3 (FNA >= 2.5cm, F/U >= 1.5cm at 1, 3, and 5 yrs) TR4 (FNA >= 1.5cm, F/U >= 1cm at 1, 2, 3, and 5 yrs) TR5 (FNA >= 1cm, F/U >= 0.5cm annually for up to 5 yrs) This document has been electronically signed by: Moi Lema MD on 12/23/2024 10:13:26
--- OUTSIDE RECORDS SUMMARY | 2024-12-22 14:47 | XMS_ITS | Clinical Summary ---
Author Organization [facility] Address [address] [place] [address] Care Team Providers Care Automotive Product Specialist Name Role Phone Unavailable Primary Care Provider Unavailabl e Social History Tobacco Use Types Packs/Day Years Used Date Smoking Tobacco: Never Assessed Sex and Gender Information Value Date Recorded Sex Assigned at Not on file Gender Identity Not on file Sexual Orientation Not on file Plan of Treatment Not on file
--- OUTSIDE RECORDS SUMMARY | 2024-12-22 14:47 | XMS_ITS | Patient Health Record ---
Author Organization Kyaw Fishman MD Address [address] [place], [place] [id number] Care Team Providers Care Physical Meteorologist Name Role Phone Kyaw Fishman Primary Care Provider [phone] Allergies Allergen (clinical drug ingredient) Drug/Non Drug Allergy documented on EMR Reaction Allergy Type Onset Date Status codeine codeine (uncoded) itch Allergy Ac tive Results Component Value Reference Range Notes Hemoglobin A1c Reviewed date:08/20/2024 10:12:39 AM Interpretation: Performing Lab: Notes/Report: Value 5.1 Complete Blood Count Auto Di ff Reviewed date:02/09/2024 12:57:36 PM Interpretation: Performing Lab:[facility], [address] [place] [phone] Notes/Report: White Blood Count 7.7 4.8-10.8 X10*3/uL Red Blood Count 4.39 4.60-5.80 X10*6/uL Hemoglobin 14.0 14.0-18.0 g/dl Hematocrit 41.3 42.0-52.0 % Mean Corpuscular Volume 94.1 80.0-98.0 fL Mean Corpuscular Hemoglobin 31.9 27.0-33.0 pg Mean Corpuscular HGB Conc 33.9 31.0-36.0 g/dl Red Cell Distribution Width 12.8 11.0-16.0 % Platelet Count 259 160-400 X10*3/uL Mean Platelet Volume 10.3 9.4-12.4 fL Neutrophils Percent Auto 43.7 45-73 % Imm Gran Pct Auto 0.3 0.0-0.4 % Lymphocytes Percent Auto 39.5 20-40 % Monocytes Percent Auto 10.6 2-11 % Eosinophils Percent Auto 4.7 0-4 % Basophils Percent Auto 1.2 0-2 % NRBC Pct Auto 0.0 0.0-0.2 /100WBC Neutrophils Absolute Auto 3.4 2.0-8.3 x10*3/u L Imm Gran Abs Auto 0.02 0.00-0.03 X10*3/uL Lymphocytes Absolute Auto 3.0 1.2-4.9 X10*3/u L Monocytes Absolute Auto 0.8 0.1-1.2 X10*3/uL Eosinophils Absolute Auto 0.4 0.0-0.4 X10*3/u L Basophils Absolute Auto 0.1 0.0-0.2 X10*3/uL NRBC Abs Auto 0.000 0.0-0.012 X10*3/uL Comprehensive [place]. Panel Fa st Reviewed date:02/09/2024 12:57:12 PM Interpretation: Performing Lab:[facility], [address] [place] [phone] Notes/Report: Sodium 140 135-145 mmol/L Potassium 4.2 3.3-5.1 mmol/L Chloride 103 96-108 mmol/L Carbon Dioxide 30 22-29 mmol/L Anion Gap 11 12-20 Blood Urea Nitrogen 19 9-16 mg/dL Creatinine 1.18 0.5-1.4 mg/dL Estimated Glomerular Filt Rate > 60 NOTE: For -[place] individuals, multiply the result by 1.210. Chronic Kidney Disease: Estimated GFR < 60 mL/min/1.73m2 Severe Kidney Disease: Estimated GFR < 15 mL/min/1.73m2 Glucose Fasting 104 60-99 mg/dL A fasting glucose from 100-125 mg/dl is considered impaired (pre-diabetes). Calcium 9.1 8.4-10.2 mg/dL Bilirubin Total 0.2 0.0-1.0 mg/dL Aspartate Amino Transferase 18 5-37 U/L Alanine Aminotransferase 20 0-40 U/L Total Protein 6.8 6.5-8.0 g/dL Albumin Level 3.9 3.5-5.0 g/dL Alkaline Phosphatase 58 39-117 U/L Lipid Panel Reviewed date:02/09/2024 12:39:57 PM Interpretation: Performing Lab:[address] [phone] Notes/Report: Triglycerides 209 <150 mg/dL Desirable Triglyceride: less than 150 mg/dL Borderline High Triglyceride 150-199 mg/dL High Triglyceride: 200-499 mg/dL Very High Triglyceride: greater than or equal to 5OO mg/dL Cholesterol 150 <200 mg/dL Desirable Cholesterol: less than 200 mg/dL Borderline High Cholesterol: 200-239 mg/dL High Cholesterol: greater than 239 mg/dL LDL Cholesterol Calculated 65 <100 mg/dL Desirable LDL: less than 100 mg/dL Near Optimal/Above Optimal LDL: 110-129 mg/dL Borderline High LDL: 130-159 mg/dL High LDL: 160-189 mg/dL Very High LDL: greater than or equal to 190 mg/dL HDL Cholesterol 44 >40 mg/dL Desirable HDL: greater than 40 mg/dL Note: This HDL assay may give artificially low results in patients with liver disease. PSA,Total (Free>4and<10) Reviewed date:02/09/2024 12:39:26 PM Interpretation: Performing Lab:[address] [phone] Notes/Report: PSA,Total (Free>4and<10) 0.79 0.00-4.00 ng/mL A Free PSA was not performed: The percentage of Free PSA can be used to enhance the differentiation of prostate cancer from benign prostatic disease in subjects whose PSA levels are between 4.0 and 10.0 ng/mL. For subjects whose PSA levels are below 4.0 or above 10.0 ng/mL, the risk of prostate cancer is determined on the basis of the PSA alone. Therefore the % Free PSA is recommended only for those subjects whose PSA levels are between 4.0 and 10.0 ng/mL. PSA methodology: [employer] i Chemiluminescent Microparticle Immunoassay (CMIA) Microalbumin, Random Reviewed date:02/09/2024 12:39:48 PM Interpretation: Performing Lab:[address] [phone] Notes/Report: Creatinine Urine 84.47 Microalbumin Urine < 5.0 Microalbum/Creatinine Ratio Ur TNP <30 ug/mg cr Unable to calculate albumin/creatinine ratio due to low microalbumin or creatinine result. Hemoglobin A1c Reviewed date:02/09/2024 12:39:17 PM Interpretation: Performing Lab:[facility], [address] [place] [phone] Notes/Report: Hemoglobin A1c % 5.2 <6.0 % Hemoglobin A1C Reference Range Adults: 4.8 - 6.0 % Non diabetic: < 6.0 % Goal: < 7.0 % Additional Action Suggested: > 8.0 % Note: Hemoglobin A1c results are invalid for patients with abnormal amounts of HbF. Blood transfusions may impact the HbA1c concentration in the patient sample. Estimated Average Glucose 103 eAG = Estimated average glucose which is %A1C expressed as average glucose, using the formula of the [id number] Average Glucose study (ADAG), Diabetes Care, Vol.31,#8, Jan. 2007 UA ClnCatch+Micro w/rflx Cul t Reviewed date:02/09/2024 12:58:22 PM Interpretation: Performing Lab:[facility], [address] [place] [phone] Notes/Report: Urine, Clean Catch Color Urine Yellow Appearance Urine Clear PH 6.0 5.0-9.0 Glucose Urine UA Negative Negative mg/dL Urine Blood Negative Negative Specific Jackson - Urine 1.015 1.005-1.025 Urine Protein Negative Neg-Trace mg/dL Urine Ketones Negative Negative mg/dL Nitrite Urine Negative Negative Leukocyte Esterase Urine Negative Negative RBC Urine 0-2 0-2 /HPF WBC Urine 0-5 0-5 /HPF Squamous Epithelial Cell Urine 0-2 0-2 /HPF Bacteria Urine None Seen None Seen Hyaline Casts Urine 0-2 0-2 /LPF Liver Panel Reviewed date:08/16/2024 05:10:00 PM Interpretation: Performing Lab:[facility], [address] [place] [phone] Notes/Report: Bilirubin Total 0.3 0.0-1.0 mg/dL Bilirubin Direct 0.1 0.0-0.5 mg/dL Aspartate Amino Transferase 40 5-37 U/L Alanine Aminotransferase 25 0-40 U/L Total Protein 7.2 6.5-8.0 g/dL Albumin Level 3.9 3.5-5.0 g/dL Alkaline Phosphatase 69 39-117 U/L Lipid Panel with Reflex Reviewed date:08/16/2024 05:26:20 PM Interpretation: Performing Lab:[facility], [address] [place] [phone] Notes/Report: Triglycerides 169 <150 mg/dL Desirable Triglyceride: [...] low results in patients with liver disease. Testosterone, Free/Total Reviewed date:09/07/2024 10:06:45 AM Interpretation: Performing Lab:[facility], [address] [place] [phone] Notes/Report: Testosterone, Total 710 795-2568 ng/dL Men with clinically significant hypogonadal symptoms and testosterone values repeatedly in the range of the 200-300 ng/dL or less, may benefit from testosterone treatment after adequate risk and benefits counseling. For additional information, please refer to http://education.[employer].com/faq/ TotalTestosteroneLCMSMSFAQ 165 (This link is being provided for informational/ educational purposes only.) This test was developed and its analytical performance characteristics have been determined by [facility] [place], [place]. It has not been cleared or approved by the U.S. Food and Drug Administration. This assay has been validated pursuant to the CLIA regulations and is used for clinical purposes. Testosterone, Free 68.0 35.0-155.0 pg/mL This test was developed and its analytical performance characteristics have been determined by [facility] [place], [place]. It has not been cleared or approved by the U.S. Food and Drug Administration. This assay has been validated pursuant to the CLIA regulations and is used for clinical purposes. THIS TEST WAS PERFORMED AT: [facility]/[address] ROMAIN SHAW MD,PHD Glucose, finger stick Reviewed date:08/20/2024 10:09:11 AM Interpretation: Performing Lab: Notes/Report: Value 109 Jasmin Stokes Reviewed date:08/16/2024 12:36:16 PM Interpretation: Performing Lab:[facility], [address] [place] [phone] Notes/Report: Jasmin Stokes See Note Specimen held untested for 24 hours; Call to request Chemistry testing. Reason For Referral No Information Medications Medication SIG (Take, Route, Frequency, Duration) Notes Start Date End Date Status Rosuvastatin Calcium 20 MG TAKE 1 TABLET DAILY AT BEDTIME for 90 Active Sildenafil Citrate 100 mg TAKE ONE-HALF (1/2) TABLET DAILY NEEDED Active Gabapentin 300 MG TAKE 1 CAPSULE BY [facility] THREE TIMES DAILY for 30 [...] capsule Orally charles ry 6 hours Not-Taking KlonoPIN 2 MG one tab Orally 2 jacklyn es a day Active buPROPion HCl ER (XL) 300 MG 1 tablet in the morning Orally Once a day Active Albuterol Sulfate HFA 108 (90 Base) MCG/ACT USE 1 INHALATION EVERY 4 HOURS NEEDED Active Immunizations Vaccine Route Administration Date Status Comme nts PPSV23 (Pnemovax) Unknown 05/08/2010 Administered Flu Vaccine IM Intramuscular 03/19/2011 Administered Flu Vaccine IM Intramuscular 08/03/2012 Administered Flu Vaccine IM Intramuscular 03/21/2015 Administered Fluarix Quadrivalent IM Intramuscular 03/26/2016 Administe red Fluarix Quadrivalent IM Intramuscular 03/18/2017 Administe red TDaP Unknown 06/02/2017 Administered [facility] Fluarix Quadrivalent IM Intramuscular 04/06/2018 Administe red PPSV23 (Pnemovax) IM Intramuscular 04/20/2018 Administered Tetanus Unknown 06/02/2017 Administered Fluarix Quadrivalent IM Intramuscular 02/25/2019 Administe red PPSV23 (Pnemovax) IM Intramuscular 08/30/2019 Administered Fluarix Quadrivalent IM Intramuscular 03/08/2020 Administe red Covid Vaccine Unknown 08/14/2020 Administered Moderna Covid Vaccine Unknown 09/11/2020 Administered Moderna Fluarix Quadrivalent IM Intramuscular 03/22/2021 Administe red SARS-COV-2 Moderna Unknown 04/16/2021 Administered Fluarix Quadrivalent IM Intramuscular 03/21/2022 Administe red Fluarix Quadrivalent IM Intramuscular 03/28/2023 Administe red Flu Vaccine Unknown 09/20/2014 Refused Social History Tobacco Use: Social History Observation Description Date Details (start date - stop date) Former Smoker NA - NA Tobacco Use/Smoking Question Answer Notes Patient is a former smoker How long has it been since y ou last smoked? > 10 years Additional Findings: Tobacco Non-User Fo rmer smoker, currently using no form of tobacco Alcohol Screen Question Answer Notes Did you have a drink containing alcohol in the p ast year? No Points 0 Interpretation Negative Problems Problem Type SNOMED Code ICD Code Onset Dates Problem Status W/U Status Risk Notes Problem 676974859 Neuropathy (G62.9) Active confirmed Problem 53563851 Anxiety (F41.9) Active confirmed Problem 6609083 Arthritis (M19.90) Active confirmed Problem 90434437 Essential hypert ension (I10) Active confirmed Problem 2211969 Prediabetes (R73.09) Active confirmed Problem 360941967 Anxiety disorder (F41.9) Active confirmed Problem 219721612 Moderate persist ent asthma without complication (J45.40) Active confirmed Problem 69241821 Dysthymia (F34.1) Active confirmed Problem 345421051 Moderate episode of recurrent major depressive disorder (F33.1) Active confirmed Problem Right sided scia angely (M54.31) Active confirmed Problem 39757038 Tick bite, initi al encounter (W57.XXXA) Active confirmed Problem 981009671 Pure hypercholesterolemia (E78.00) Active confirmed Problem 156599962 Primary osteoart hritis of both hips (M16.0) Active confirmed Problem Decrease in appetite (finding) (27501686) Decreased appetite (R63.0) Active confirmed Vital Signs Blood pressure diastolic 80 mm Hg 12/17/2024 brenna ght is down 2 pounds since 08-20-24 Height 68.5 in 12/17/2024 weight is down 2 pounds since 08-20-24 Blood pressure systolic 132 mm Hg 12/17/2024 weig ht is down 2 pounds since 08-20-24 Weight 178 lbs 12/17/2024 weight is down 2 pounds since 08-20-24 BMI 26.67 kg/m2 12/17/2024 weight is down 2 pounds since 08-20-24 Encounters Encounter Location Date Provider Diagnosis Kyaw Fishman MD [address] [place] [id number] 02/09/2024 Kyaw Fishman Blood tests for rout ine general physical examination Z00.00 ; Essential hypertension I10 ; Pure hypercholesterolemia E78.00 and Prediabetes R73.09 Kyaw Fishman MD [address] [place] [id number] 08/16/2024 Kyaw Fishman Pure hypercholestero lemia E78.00 and Moderate episode of recurrent major depressive disorder F33.1 Kyaw Fishman MD [address] [place] [id number] 08/30/2024 Kyaw Fishman Moderate episode of recurrent major depressive disorder F33.1 Kyaw Fishman MD [address] [place] [id number] 12/17/2024 Kyaw Fishman Nodule, subcutaneous R22.9 Kyaw Fishman MD [address] [place] [address] [id number] 02/16/2024 Kyaw Fishman Prediabetes R73.09 ; Annual physical exam Z00.00 ; Essential hypertension I10 ; Anxiety disorder F41.9 ; Dysthymia F34.1 ; Pure hypercholesterolemia E78.00 ; Moderate persistent asthma without complication J45.40 ; Colon cancer screening Z12.11 and Depression screening Z13.31 Kyaw Fishman MD [address] [place] [id number] 08/20/2024 Kyaw Fishman Prediabetes R73.09 ; Dysthymia F34.1 ; Essential hypertension I10 and Pure hypercholesterolemia E78.00 Kyaw Fishman MD [address] [place] [id number] 08/12/2024 Kyaw Fishman MD [address] [place] [id number] 10/07/2024 Kyaw Fishman Essential hypertensi on I10 Kyaw Fishman MD [address] [place] [id number] 10/07/2024 Kyaw Fishman Essential hypertensi on I10 Kyaw Fishman MD [address] [place] [address] [id number] 10/29/2024 Kyaw Fishman Acute eczema L30.9 Assessments Encounter Date Diagnosis (ICD Code) Assessment Notes Treatment Notes Treatment Clinical Notes Section Notes 02/09/[address] ine general physical examination (ICD-10 - Z00.00) 02/09/2024 Essential hypertensi on (ICD-10 - I10) 08/16/2024 Pure hypercholesterolemia (ICD-10 - E78.00) 08/30/2024 Moderate episode of recurrent major depressive disorder (ICD-10 - F33.1) 12/17/2024 Nodule, subcutaneous (ICD-10 - R22.9) pending diagnostic testing, order faxed to [facility] dept 02/16/2024 Prediabetes (ICD-10 - R73.09) stable, no need for medication at this time 02/16/2024 Annual physical exam (ICD-10 - Z00.00) labs reviewed and discussed with patient 08/20/2024 Prediabetes (ICD-10 - R73.09) doing well, stable, no need for medication at this time 10/07/2024 Essential hypertensi on (ICD-10 - I10) 10/07/2024 Essential hypertensi on (ICD-10 - I10) 10/29/2024 Acute eczema (ICD-10 - L30.9) 02/09/2024 Pure hypercholesterolemia (ICD-10 - E78.00) 08/16/2024 Moderate episode of recurrent major depressive disorder (ICD-10 - F33.1) 02/16/2024 Essential hypertensi on (ICD-10 - I10) had some orthostasis when taking trazadone, currently stab;e, will continue current regiment 08/20/2024 Dysthymia (ICD-10 - F34.1) going to get ketamine in [place] 02/09/2024 Prediabetes (ICD-10 - R73.09) 02/16/2024 Anxiety disorder (ICD-10 - F41.9) has been on ketamine 08/20/2024 Essential hypertensi on (ICD-10 - I10) stable, will continue current regiment 02/16/2024 Dysthymia (ICD-10 - F34.1) seeing counsellor, will continue current regiment 08/20/2024 Pure hypercholesterolemia (ICD-10 - E78.00) stable, will contnue current regiment 02/16/2024 Pure hypercholesterolemia (ICD-10 - E78.00) stable, will continue current regiment 02/16/2024 Moderate persistent asthma without complication (ICD-10 - J45.40) stable, will continue current regiment 02/16/2024 Colon cancer screeni ng (ICD-10 - Z12.11) guaic negative 02/16/2024 Depression screening (ICD-10 - Z13.31) negative screen Plan Of Treatment Pending Test Test Name Order Date Electrocardiogram (EKG) 10/20/2015 Ultrasound : Veneous Doppler 03/18/2011 XR CHEST 2 VIEW PA & LAT 04/12/2014 Testosterone, Free/Total 08/16/2024 US soft tiss head and/or neck 12/17/2024 Next Appt Details Provider Name:Kyaw thurston, 12/28/2024 11:30:00 AM, [address] [place] [address], [address], [place], [place], [phone], Provider Name:Kyaw thurston, 02/11/2025 07:15:00 AM, [address], [address], [place], [place], [phone], Provider Name:Kyaw West ier, 02/17/2025 09:30:00 AM, [address], [address], [place], [place], [phone], Insurance Providers Payer Name Payer Address Payer Phone Subscriber Number Group Number Insured Name Patient Relationship to Insured Coverage Start Date Coverage End Date [facility] are [employer] [address] [address] [place] [phone] [id number] Kamran Gautam Self - patient is the insured Medical (General) History Medical History History ICD Code colonoscopy discussed again 2013; colonoscopy 10/12/15 w/Dr. Winters/ tubular adenoma. due in 2020 right bicep repair on 07/19/2019 colonoscopy 2021 due in 5 years Surgical History Surgery Date(Month/Year) left total knee arthoplasty by Dr. Barbara gil 03/2016
== END 2024-12-22 14:13 | disposition home or self-care (01) ==
LOC: HO.HMGCX 14:12
PROVIDERS: PCP Internal Medicine; Visit Provider Internal Medicine
DX: R22.9 Localized swelling, mass and lump, unspecified (principal)
CPT/HCPCS: 76536

== ENCOUNTER → 2024-12-22 14:15 | Outpatient (BNV) | payer MEDICARE, SELFPAY | PROVIDERS: PCP Internal Medicine; Visit Provider Specialist | DX: R22.1 Localized swelling, mass and lump, neck (principal) | CPT/HCPCS: 76536 ==

== ENCOUNTER 2025-02-16 09:11 | Outpatient (AMB) | payer MEDICARE, SELFPAY ==
--- OUTSIDE RECORDS SUMMARY | 2024-10-29 05:12 | XMS_ITS ---
Author Organization Kyaw Fishman MD Address [address] [place] [phone] Care Team Providers Care Entertainment Dancer Name Role Phone Kyaw Fishman Primary Care Provider REASON FOR VISIT refill Medications Medication SIG (Take, Route, Fr equency, Duration) Notes Start Date End Date Status Diprolene AF 0.05 % 1 application Economics Teacher ally Once a day for 30 days 08/30/2021 Active Encounters Encounter Location Date Provider Diagnosis Kyaw Fishman MD [address] [place] [phone] 10/29/2024 Kyaw Fishman Acute eczema L30.9 Assessments Encounter Date Diagnosis (ICD Code) Assessment Notes Treatment Notes Treatment Clinical Notes Section Notes 10/29/2024 Acute eczema (ICD-10 - L30.9) Plan Of Treatment Medication Medication Name Sig Start Date Stop Date Notes Diprolene AF 0.05 % 1 application Economics Teacher ally Once a day for 30 days 08/30/2021 Next Appt Details Provider Name:Kyaw thurston, 02/17/2025 07:15:00 AM, [address], [address] [place] [address], [place], [phone], Provider Name:Kyaw Bullock Rigoeunice ier, 03/01/2025 09:30:00 AM, [address] [facility], [address], [place], [phone], Progress Notes * Kamran GAUTAMDOB: 9 (64 yo M)Acc No.[id number]:10/29/2024 Patient: Yoli Kamran MITCHELL :1960 A ge:64 Y S ex:Male Address:[address] [place] [address] * Refills Refill Diprolene AF Cream, 0.05 %, Externally, 60, 1 application, Once a day, 30 days, Refills=4 * true * Date: Generated for Jennifer germain/Henrry/Stephanieitting on: 0 02/16/2025 09:40 AM EDT
--- OUTSIDE RECORDS SUMMARY | 2024-12-17 05:15 | XMS_ITS ---
Author Organization Kyaw Fishman MD Address [address] [place], [place] [phone] Care Team Providers Care Artillery Specialist Name Role Phone Kyaw Fishman Primary Care Provider Allergies Allergen (clinical drug ingredient) Drug/Non Drug Allergy documented on EMR Reaction Allergy Type Onset Date Status codeine codeine (uncoded) itch Allergy Ac tive Results Component Value Reference Range Notes US soft tiss head and/or nec k Reviewed date:12/28/2024 11:52:36 AM Interpretation:12-28-2024 Performing Lab: Notes/Report: [facility] [address] [place] [address] [place] [address] Ultrasound Report Signed Patient: Kamran Gautam MR#: [id number] : 1960 Acct:[id number] Age/Sex: 64 / M ADM Date: 12/22/24 Loc: HO.HMGCX Attending Dr: Kyaw Fishman MD Ordering Physician: Kyaw Fishman MD Date of Service: 12/22/24 Procedure(s): US soft tiss head and/or neck Accession Number(s): [id number] cc: Kyaw Fishman MD CLINICAL HISTORY: SUBCUTANEOUS [...] 1. Possible sebaceous cyst. Clinical follow-up recommended. [employer] TI-RADS Categories TR1 and [...] 12/23/24 1014 DD/ 1013 TD/TT: 12/23/24 1013 Book Reviewer: [facility] [address] [place] [address] [place] [address] Ultrasound Report Signed Patient: Gene Gautam MR#: [id number] : 1960 Acct:[id number] Age/Sex: 64 / M ADM Date: 12/22/24 [facility] Dr: Kyaw Fishman MD Ordering Physician: Kyaw Fishman MD Date of Service: 12/22/24 Procedure(s): US sof t tiss head and/or neck Accession Number(s): [id number] cc: Kyaw Fishman MD CLINICAL HISTORY: FREIRE [...] Possible sebaceou s cyst. Clinical follow-up recommended. [employer] TI-RADS Categories TR1 and [...] 12/23/24 1014 DD/ 1013 TD/TT: 12/23/24 1013 Book Reviewer: REASON FOR VISIT lump back of neck [...] Gabapentin 300 MG TAKE 1 CAPSULE BY [facility] THREE TIMES DAILY for 30 Active Rosuvastatin [...] kg/m2 12/17/2024 weight is down 2 pounds [facility] e 08-20-24 Encounters Encounter Location Date Provider Diagnosis Kyaw Fishman MD [address] [place] [address] [place] [phone] 12/17/2024 Kyaw Fishman Nodule, subcutaneous R22.9 Assessments Encounter Date Diagnosis (ICD Code) Assessment Notes Treatment Notes Treatment Clinical Notes Section Notes 12/17/2024 Nodule, subcutaneous (ICD-10 - R22.9) pending diagnostic testing, order faxed to [facility] dept Plan Of Treatment Treatment Notes Assessment Notes Nodule, subcutaneous pending diagnostic testing, order faxed to [facility] dept Next Appt Details Follow Up: after us, Reason: Provider Name:Kyaw thurston, 02/17/2025 07:15:00 AM, [address] [place] [address], Suite [facility], [place], [place], [phone], Provider Name:Kyaw thurston, 03/01/2025 09:30:00 AM, [address] [place] [address], Suite [facility], [place], [place], [phone], Progress Notes * Kamran GAUTAMDOB: 9 (64 yo M)Acc No.[id number]:12/17/2024 Progress Notes Patient: Kamran VEGA Provider: Kinsey Fishman MD :1960 A ge:64 Y S ex:Male Date:12/17/2024 Address:[address] [place], [place] [phone] Subjective: * Chief Complaints: * 1 . [...] MD Date: 0 12/17/2024 Generated for Jennifer germain/Henrry/Kipsmitting on: 0 02/16/2025 09:39 AM EDT History and Physical Notes * [...]
--- OUTSIDE RECORDS SUMMARY | 2024-12-28 07:30 | XMS_ITS ---
Author Organization Kyaw Fishman MD Address [address] [place], [place] [id number] Care Team Providers Care Urogynecology Physician Name Role Phone Kyaw Fishman Primary Care Provider [phone] Allergies Allergen (clinical drug ingredient) Drug/Non Drug Allergy documented on EMR Reaction Allergy Type Onset Date Status codeine codeine (uncoded) itch Allergy Ac tive REASON FOR VISIT CBACK AFTER US Medications Medication SIG (Take, Route, Frequency, Duration) Notes Start Date End Date Status ProAir HFA 108 (90 Base) MCG/ACT INHALE 2 PUFFS EVERY 4 HOURS NEEDED Not-Taking Albuterol Sulfate HFA 108 (90 Base) MCG/ACT USE 1 INHALATION EVERY 4 HOURS NEEDED for 90 Active Irbesartan-hydroCHLOROthi azide 300-12.5 MG TAKE 1 TABLET ONCE DAILY for 90 Active Diprolene AF 0.05 % 1 application Externally Once a day for 30 days 08/30/2021 Active Rosuvastatin Calcium 20 MG TAKE 1 TABLET DAILY AT BEDTIME for 90 Active KlonoPIN 2 MG one tab Orally 2 jacklyn es a day Active buPROPion HCl ER (XL) 300 MG 1 tablet in the morning Orally Once a day Active Sildenafil Citrate 100 mg TAKE ONE-HALF (1/2) TABLET DAILY NEEDED Active Gabapentin 300 MG TAKE 1 CAPSULE BY [facility] THREE TIMES DAILY for 30 Active Metoprolol Succinate ER 50 mg TAKE 1 TABLET DAILY ORALLY ONCE PER DAY for 90 days Active Amoxicillin 250 MG 4 caps 1 houir befor e dental work Orally Three times a day Active Vital Signs Blood pressure systolic 112 mm Hg 12/29/19 25 Blood pressure diastolic 70 mm Hg 025 Height 68.5 in 12/28/2024 Weight 174 lbs 12/28/2024 BMI 26.07 kg/m2 12/28/2024 weight is down 4 pounds [facility] 12-17-24 Encounters Encounter Location Date Provider Diagnosis Kyaw Fishman MD [address] [place] [address] [place] [phone] 12/28/2024 Kyaw Fishman Sebaceous cyst L72.3 Assessments Encounter Date Diagnosis (ICD Code) Assessment Notes Treatment Notes Treatment Clinical Notes Section Notes 12/28/2024 Sebaceous cyst (ICD-10 - L72.3) has gotten smaller and softer and us was looking like a sebaceous cyst. will follow Plan Of Treatment Treatment Notes Assessment Notes Sebaceous cyst has gotten smaller a nd softer and us was looking like a sebaceous cyst. will follow Next Appt Details Follow Up: 4 Weeks, Reason: Provider Name:Kyaw thurston, 02/17/2025 07:15:00 AM, [address] [place] [address], [address], [phone], Provider Name:Kyaw thurston, 03/01/2025 09:30:00 AM, [address] [place] [address], [place] [address], [place], [place], [phone], Progress Notes * Kamran GAUTAMDOB: 9 (64 yo M)Acc No.[id number]:12/28/2024 Patient: Kamran VEGA Provider: Kinsye Fishman MD :1960 A ge:64 Y S ex:Male Date:12/28/2024 Address:[address] [place] [address] Chanel Kristofer Amado, [id number] Subjective: * Chief Complaints: * C BACK AFTER US * HPI: S ymptom(s): patient is a 64 yo male here for follow up of recent US. * ROS: G eneral/Constitutional: Denies [place] hills. D enies F atigue. D enies F ever. D enies H eadache. E NT: Denies S ore throat. R espiratory: Siria Schuster ough. Donaldo enlino S hortness of breath at rest. D enies S hortness of breath with exertion. G astrointestinal: Siria D iarrhea. D enlino N ausea. * Medical History: * Surgical History: * Hospitalization/Major Diagno stic Procedure: * Medications: T akingAmoxicillin 250 MG Capsule 4 caps 1 houir before dental work Orally Three times a day KlonoPIN 2 MG Tablet one tab Orally 2 times a day buPROPion HCl ER (XL) 300 MG Tablet Extended Release 24 Hour 1 tablet in the morning Orally Once a day Sildenafil Citrate 100 mg Tablet TAKE ONE-HALF (1/2) TABLET DAILY NEEDED Gabapentin 300 MG Capsule TAKE 1 CAPSULE BY MOUTH THREE TIMES DAILY Metoprolol Succinate ER 50 mg Tablet Extended Release 24 Hour TAKE 1 TABLET DAILY ORALLY ONCE PER DAY Diprolene AF 0.05 % Cream 1 application Externally Once a day Rosuvastatin Calcium 20 MG Tablet TAKE 1 TABLET DAILY AT BEDTIME Albuterol Sulfate HFA 108 (90 Base) MCG/ACT Aerosol Solution USE 1 INHALATION EVERY 4 HOURS NEEDED Irbesartan-hydroCHLOROthiazide 300-12.5 MG Tablet TAKE 1 TABLET ONCE DAILY Taking Amoxicillin 250 MG Capsule 4 caps 1 houir before dental work Orally Three times a day Taking KlonoPIN 2 MG Tablet one tab Orally 2 times a day Taking buPROPion HCl ER (XL) 300 MG Tablet Extended Release 24 Hour 1 tablet in the morning Orally Once a day Taking Sildenafil Citrate 100 mg Tablet TAKE ONE-HALF (1/2) TABLET DAILY NEEDED Taking Gabapentin 300 MG Capsule TAKE 1 CAPSULE BY MOUTH THREE TIMES DAILY Taking Metoprolol Succinate ER 50 mg Tablet Extended Release 24 Hour TAKE 1 TABLET DAILY ORALLY ONCE PER DAY Taking Diprolene AF 0.05 % Cream 1 application Externally Once a day Taking Rosuvastatin Calcium 20 MG Tablet TAKE 1 TABLET DAILY AT BEDTIME Taking Albuterol Sulfate HFA 108 (90 Base) MCG/ACT Aerosol Solution USE 1 INHALATION EVERY 4 HOURS NEEDED Taking Irbesartan-hydroCHLOROthiazide 300-12.5 MG Tablet TAKE 1 TABLET ONCE DAILY Not-Taking/PRNProAir HFA 108 (90 Base) MCG/ACT Aerosol Solution INHALE 2 PUFFS EVERY 4 HOURS NEEDED Medication List reviewed and reconciled with the patientNot-Taking/PRN ProAir HFA 108 (90 Base) MCG/ACT Aerosol Solution INHALE 2 PUFFS EVERY 4 HOURS NEEDED Medication List reviewed and reconciled with the patient * Allergies: c odeine: itchyes[Allergies Verified] Objective: * Vitals: H t: 68.5, Wt: 174, BMI:26.07, BP:112/70, Wt-k.93. weight is down 4 pounds since 12-17-24. * Examination: G eneral Examination: GENERAL APPEARANCE: a lert, well hydrated, in no distress.? NECK/THYROID: t he lesion on neck is about 50% smaller. is softer and freely movable. Assessment: * Assessment: 1. S ebaceous cyst - L72.3 (Primary) Plan: * Treatment: * Procedure Codes: * Follow Up: 4 Weeks * * Sign off status: Completed true * Provider: Kinsey Fishman MD Date: 0 12/28/2024 Generated for Jennifer germain/Henrry/Stephanieitting on: 0 02/16/2025 09:39 AM EDT History and Physical Notes * HPI (History of Present Illness) Category Sub-Category Detail Notes Category Not es Symptom(s) patient is a 64 yo male here for follow up of recent US Examination Category Sub-Category Detail Notes Category Not es General Examination GENERAL APPEARANCE: alert, w ell hydrated, in no distress NECK/THYROID: the lesion on neck i s about 50% smaller. is softer and freely movable
--- OUTSIDE RECORDS SUMMARY | 2025-02-16 09:39 | XMS_ITS | Clinical Summary ---
Author Organization [facility] Address [address] [place] [address] Care Team Providers Care Explosion Welder Name Role Phone Unavailable Primary Care Provider Unavailabl e Social History Tobacco Use Types Packs/Day Years Used Date Smoking Tobacco: Never Assessed Sex and Gender Information Value Date Recorded Sex Assigned at Not on file Gender Identity Not on file Sexual Orientation Not on file Plan of Treatment Not on file
--- OUTSIDE RECORDS SUMMARY | 2025-02-16 09:39 | XMS_ITS | Patient Health Record ---
Author Organization Kyaw Fishman MD Address [address] [place], [place] [phone] Care Team Providers Care Dough Cutting Machine Operator Name Role Phone Kyaw Fishman Primary Care Provider Allergies Allergen (clinical drug ingredient) Drug/Non Drug Allergy documented on EMR Reaction Allergy Type Onset Date Status codeine codeine (uncoded) itch Allergy Ac tive Results Component Value Reference Range Notes Hemoglobin A1c Reviewed date:08/20/2024 10:12:39 AM Interpretation: Performing Lab: Notes/Report: Value 5.1 Liver Panel Reviewed date:08/16/2024 05:10:00 PM Interpretation: Performing Lab:[facility], [address] [place] [id number] Notes/Report: Bilirubin Total 0.3 0.0-1.0 mg/dL Bilirubin Direct 0.1 0.0-0.5 mg/dL Aspartate Amino Transferase 40 5-37 U/L Alanine Aminotransferase 25 0-40 U/L Total Protein 7.2 6.5-8.0 g/dL Albumin Level 3.9 3.5-5.0 g/dL Alkaline Phosphatase 69 39-117 U/L Lipid Panel with Reflex Reviewed date:08/16/2024 05:26:20 PM Interpretation: Performing Lab:[facility], [address] [place] [id number] Notes/Report: Triglycerides 169 <150 mg/dL Desirable Triglyceride: [...] Free/Total Reviewed date:09/07/2024 10:06:45 AM Interpretation: Performing Lab:[facility], [address] [place] [phone] Notes/Report: Testosterone, Total 711 024-7258 ng/dL Men with clinically significant hypogonadal symptoms and testosterone values repeatedly in the range of the 200-300 ng/dL or less, may benefit from testosterone treatment after adequate risk and benefits counseling. For additional information, please refer to http://education.[employer].com/fa q/ TotalTestosteroneM [email or web address] (This link is being provided for informational/ educational purposes only.) This test was developed and its analytical performance characteristics have been determined by [facility] [place], [place]. It has not been cleared or approved by the U.S. Food and Drug Administration. This assay has been validated pursuant to the CLIA regulations and is used for clinical purposes. Testosterone, Free 68.0 35.0-155.0 pg/mL This test was developed and its analytical performance characteristics have been determined by [facility] [place], [place]. It has not been cleared or approved by the U.S. Food and Drug Administration. This assay has been validated pursuant to the CLIA regulations and is used for clinical purposes. THIS TEST WAS PERFORMED AT: [facility] [address] [place] [address] ROMAIN SHAW MD,PHD US soft tiss head and/or nec k Reviewed date:12/28/2024 11:52:36 AM Interpretation:12-28-2024 Performing Lab: Notes/Report: [facility] Primary [facility] [place] [address] Ultrasound Report Signed Patient: Kamran Gautam MR#: [id number] : 1960 Acct:[id number] Age/Sex: 64 / M ADM Date: 12/22/24 [facility] Att[facility] Dr: Kyaw Fishman MD Ordering Physician: Kyaw Fishman MD Date of Service: 12/22/24 Procedure(s): US soft tiss head and/or neck Accession Number(s): [id number] cc: Kyaw Fishman MD CLINICAL HISTORY: SUBCUTANEOUS [...] 1. Possible sebaceous cyst. Clinical follow-up recommended. [employer] TI-RADS Categories TR1 and [...] 12/23/24 1014 DD/ 1013 TD/TT: 12/23/24 1013 Cutter Operator Tile: [facility] Care [address] [place] [address] [place] [address] Ultrasound Report Signed Patient: Gene Gautam MR#: [id number] : 1960 Acct:[id number] Age/Sex: 64 / M ADM Date: 12/22/24 [facility] Attending Dr: Kyaw Fishman MD Ordering Physician: Kyaw Fishman MD Date of Service: 12/22/24 Procedure(s): US sof t tiss head and/or neck Accession Number(s): [id number] cc: Kyaw Fishman MD CLINICAL HISTORY: SUBCUTANEOUS [...] Possible sebaceou s cyst. Clinical follow-up recommended. ___ [employer] TI-RADS Categories TR1 and [...] 12/23/24 1014 DD/ 1013 TD/TT: 12/23/24 1013 Cutter Operator Tile: Glucose, finger stick Reviewed date:08/20/2024 10:09:11 AM Interpretation: Performing Lab: Notes/Report: Value 109 Jasmin Stokes Reviewed date:08/16/2024 12:36:16 PM Interpretation: Performing Lab:[facility], [address] [place] [address], [place] [address] Notes/Report: Jasmin Stokes See Note Specimen held untested for 24 hours; Call to request Chemistry testing. Reason For Referral No Information Medications Medication SIG (Take, Route, Frequency, Duration) Notes Start Date End Date Status KlonoPIN 2 MG one tab Orally 2 jacklyn es a day Active buPROPion HCl ER (XL) 300 MG 1 tablet in the morning Orally Once a day Active ProAir HFA 108 (90 Base) MCG/ACT INHALE 2 PUFFS EVERY 4 HOURS NEEDED Not-Taking Amoxicillin 250 MG 4 caps 1 houir befor e dental work Orally Three times a day Active Sildenafil Citrate 100 mg TAKE ONE-HALF (1/2) TABLET DAILY NEEDED Active Gabapentin 300 MG TAKE 1 CAPSULE BY [facility] THREE TIMES DAILY for 30 Active Metoprolol Succinate ER 50 mg TAKE 1 TABLET DAILY ORALLY ONCE PER DAY for 90 days Active Albuterol Sulfate HFA 108 (90 Base) MCG/ACT USE 1 INHALATION EVERY 4 HOURS NEEDED for 90 Active Irbesartan-hydroCHLOROthi azide 300-12.5 MG TAKE 1 TABLET ONCE DAILY for 90 Active Diprolene AF 0.05 % 1 application Externally Once a day for 30 days 08/30/2021 Active Rosuvastatin Calcium 20 MG TAKE 1 TABLET DAILY AT BEDTIME for 90 Active Immunizations Vaccine Route Administration Date Status Comme nts PPSV23 (Pnemovax) Unknown 05/08/2010 Administered Flu Vaccine IM Intramuscular 03/19/2011 Administered Flu Vaccine IM Intramuscular 08/03/2012 Administered Flu Vaccine IM Intramuscular 03/21/2015 Administered Fluarix Quadrivalent IM Intramuscular 03/26/2016 Administe red Fluarix Quadrivalent IM Intramuscular 03/18/2017 Administe red TDaP Unknown 06/02/2017 Administered [facility] Fluarix Quadrivalent IM Intramuscular 04/06/2018 Administe red [...] Problem Status W/U Status Risk Notes Problem 964873113 Neuropathy (G62.9) Active confirmed Problem 45169673 Anxiety (F41.9) Active confirmed Problem 6870262 Arthritis (M19.90) Active confirmed Problem 25371138 Essential hypert ension (I10) Active confirmed Problem 2971863 Prediabetes (R73.09) Active confirmed Problem 351254364 Anxiety disorder (F41.9) Active confirmed Problem 797940230 Moderate persist ent asthma without complication (J45.40) Active confirmed Problem 35041296 Dysthymia (F34.1) Active confirmed Problem 383147441 Moderate episode of recurrent major depressive disorder (F33.1) Active confirmed Problem Right sided scia angely (M54.31) Active confirmed Problem 84883677 Tick bite, initi al encounter (W57.XXXA) Active confirmed Problem 317775683 Pure hypercholesterolemia (E78.00) Active confirmed Problem 412462845 Primary osteoart hritis of both hips (M16.0) Active confirmed Problem Decrease in appetite (finding) (97286121) Decreased appetite (R63.0) Active confirmed Vital Signs Blood pressure diastolic 70 mm Hg 12/28/2024 brenna ght is down 4 pounds since 12-17-24 Height 68.5 in 12/28/2024 weight is down 4 pounds since 12-17-24 Blood pressure systolic 112 mm Hg 12/28/2024 weig ht is down 4 pounds since 12-17-24 Weight 174 lbs 12/28/2024 weight is down 4 pounds since 12-17-24 BMI 26.07 kg/m2 12/28/2024 weight is down 4 pounds since 12-17-24 Encounters Encounter Location Date Provider Diagnosis Kyaw Fishman MD [address] [place] [id number] 08/16/2024 Kyaw Fishman Pure hypercholestero lemia E78.00 and Moderate episode of recurrent major depressive disorder F33.1 Kyaw Fishman MD [address] [place] [id number] 08/30/2024 Kyaw Fishman Moderate episode of recurrent major depressive disorder F33.1 Kyaw Fishman MD [address] [place] [id number] 12/17/2024 Kyaw Fishman Nodule, subcutaneous R22.9 Kyaw Fishman MD [address] [place] [id number] 08/20/2024 Kyaw Fishman Prediabetes R73.09 ; Dysthymia F34.1 ; Essential hypertension I10 and Pure hypercholesterolemia E78.00 Kyaw Fishman MD [address] [place] [id number] 12/28/2024 Kyaw Fishman Sebaceous cyst L72.3 Kyaw Fishman MD [address] [place] [id number] 08/12/2024 Kyaw Fishman MD [address] [place] [id number] 10/07/2024 Kyaw Fishman Essential hypertensi on I10 Kyaw Fishman MD [address] [place] [id number] 10/07/2024 Kyaw Fishman Essential hypertensi on I10 Kyaw Fishman MD [address] [place] [id number] 10/29/2024 Kyaw Fishman Acute eczema L30.9 Assessments Encounter Date Diagnosis (ICD Code) Assessment Notes Treatment Notes Treatment Clinical Notes Section Notes 08/16/2024 Pure hypercholesterolemia (ICD-10 - E78.00) 08/30/2024 Moderate episode of recurrent major depressive disorder (ICD-10 - F33.1) 12/17/2024 Nodule, subcutaneous (ICD-10 - R22.9) pending diagnostic testing, order faxed to [facility] CS dept 08/20/2024 Prediabetes (ICD-10 - R73.09) doing well, stable, no need for medication at this time 12/28/2024 Sebaceous cyst (ICD- 10 - L72.3) has gotten smaller and softer and us was looking like a sebaceous cyst. will follow 10/07/2024 Essential hypertensi on (ICD-10 - I10) 10/07/2024 Essential hypertensi on (ICD-10 - I10) 10/29/2024 Acute eczema (ICD-10 - L30.9) 08/16/2024 Moderate episode of recurrent major depressive disorder (ICD-10 - F33.1) 08/20/2024 Dysthymia (ICD-10 - F34.1) going to get ketamine in [place] 08/20/2024 Essential hypertensi on (ICD-10 - I10) stable, will continue current regiment 08/20/2024 Pure hypercholesterolemia (ICD-10 - E78.00) stable, will contnue current regiment Plan Of Treatment Pending Test Test Name Order Date Electrocardiogram (EKG) 10/20/2015 Ultrasound : Veneous Doppler 03/18/2011 XR CHEST 2 VIEW PA & LAT 04/12/2014 Testosterone, Free/Total 08/16/2024 Next Appt Details Provider Name:Kyaw thurston, 02/17/2025 07:15:00 AM, [address] [place] [address] Drive, [address], [place], [place], [phone], Provider Name:Kyaw thurston, 03/01/2025 09:30:00 AM, [address] [place] [address] Drive, [address], [place], [place], [phone], Insurance Providers Payer Name Payer Address Payer Phone Subscriber Number Group Number Insured Name Patient Relationship to Insured Coverage Start Date Coverage End Date [facility] are [employer] [address] [address] [place] [address] [id number] Kamran Gautam Self - patient is the insured Medical (General) History Medical History History ICD Code colonoscopy discussed again 2013; colonoscopy 10/12/15 w/Dr. Winters/ tubular adenoma. due in 2020 right bicep repair on 07/19/2019 colonoscopy 2021 due in 5 years Surgical History Surgery Date(Month/Year) left total knee arthoplasty by Dr. Jimenez 03/2016
--- OUTSIDE RECORDS SUMMARY | 2025-02-16 09:39 | XMS_ITS | Encounter Summary ---
Author Organization [facility] Address [address] [place] [address] Phone Care Team Providers Care Hat Forming Machine Operator Name Role Phone Kyaw Fishman MD Primary Care Provider Encounter Details Date Type Department Care Team (Late st Contact Info) Description 07/09/2019 Procedure Pass [address] [place] [address] Social History Tobacco Use Types Packs/Day Years Used Date Smoking Tobacco: Former Cigarettes Q uit: 1997 Smokeless Tobacco: Never Alcohol Use Standard Drinks/Week Comments Not Currently 0 (1 standard drink = 0.6 oz pur e alcohol) Sex and Gender Information Value Date Recorded Sex Assigned at Not on file Legal Sex Male 3:10 PM EST Gender Identity Not on file Sexual Orientation Not on file documented as of this encounter Last Filed Vital Signs Vital Sign Reading Time Taken Comments Blood Pressure - - Pulse - - Temperature - - Respiratory Rate - - Oxygen Saturation - - Inhaled Oxygen Concentration - - Weight 93 kg (205 lb) 07/12/2019 11:32 AM EST Height 175.3 cm (5' 9 ) 07/12/2019 11:32 AM EST Body Mass Index 30.27 07/12/2019 11:32 AM EST documented in this encounter Plan of Treatment Not on file documented as of this encounter Visit Diagnoses Not on filedocumented in this encounter Care Teams Hat Forming Machine Operator Relationship Specialty Start Date End Date Kyaw Fishman MD [address] [place] [address] [place] [address] PCP - General Internal Medicine 07/09/19 documented as of this encounter Additional Source Comments The information contained in this document represents components of the legal health record. It is not the complete legal health record.[facility]
--- OUTSIDE RECORDS SUMMARY | 2025-02-16 09:40 | XMS_ITS | Clinical Summary ---
Author Organization [facility] Address [address] [place] [address] Phone Care Team Providers Care Manager Generation Name Role Phone Kyaw Fishman MD Primary Care Provider Allergies Active Allergy Reactions Criticality Noted Date Comments Diphenhydramine Hcl Itching 07/16/2019 Codeine Itching 07/16/2019 Nsaids (Non-Steroidal Anti-I nflammatory Drug) GI Upset 07/16/2019 Medications irbesartan-hydr oCHLOROthiazide (AVALIDE) 150-12.5 mg per tablet Take 1 tablet by mouth daily. Active metoprolol succinate (TOPROL-XL) 25 MG 24 hr tablet Take 25 mg by mouth daily. Active rosuvastatin (CRESTOR) 10 MG tablet Take 10 mg by mouth daily. Active gabapentin (NEURONTIN) 300 MG capsule Take 300 mg by mouth 3 (three) times a day. 2 Active clonazePAM (KLONOPIN) 2 MG tablet Take 2 mg by mouth 3 (three) times a day. 2 Active buPROPion (WELLBUTRIN XL) 300 MG ER 24 hr tablet 2 Active amoxicillin (AMOXIL) 500 MG capsule TAKE 4 CAPSULES BY MOUTH 1 HOUR BEFORE APPOINTMENT 2 Active ALPRAZolam (XANAX) 1 MG tablet 2 Active albuterol 90 mcg/actuation inhaler 2 Active Active Problems Problem Noted Date Diagnosed Date HTN (hypertension) 07/16/2019 Biceps rupture, distal, right, initial encounter Social History Tobacco Use Types Packs/Day Years Used Date Smoking Tobacco: Former Cigarettes Q uit: 1998 Smokeless Tobacco: Never Alcohol Use Standard Drinks/Week Comments Not Currently 0 (1 standard drink = 0.6 oz pur e alcohol) Education Answer Date Recorded Are you interested in more education? Not on ludwin e 10/18/2022 Are you concerned about learning? Not on file 10/18/2022 No 10/18/2022 No 10/18/2022 Digital Access Answer Date Recorded No 11/19/2022 No 11/19/2022 Reliable internet access at home? Not on file 11/19/2022 Device with a working camera? Not on file Sex and Gender Information Value Date Recorded Sex Assigned at Not on file Legal Sex Male 3:10 PM EST Gender Identity Not on file Sexual Orientation Not on file Last Filed Vital Signs Vital Sign Reading Time Taken Comments Blood Pressure 135/83 07/19/2019 4:45 PM EST Pulse 84 07/19/2019 4:45 PM EST Temperature 36.7 C (98.1 F) 07/19/2019 4:45 PM EST Respiratory Rate 16 07/19/2019 4:45 PM EST Oxygen Saturation 97% 07/19/2019 4:45 PM EST Inhaled Oxygen Concentration - - Weight 95.3 kg (210 lb) 08/04/2019 8:52 AM EST Height 175.3 cm (5' 9 ) 07/16/2019 11:29 AM EST Body Mass Index 31.01 07/16/2019 11:29 AM EST Plan of Treatment Health Maintenance Due Date Last Done Comments BLOOD PRESSURE 1959 CREATININE LEVEL 1959 LIPID PANEL 1959 POTASSIUM LEVEL 1959 DEPRESSION SCREENING 1971 SMOKING Hx and SMOKELESS TOBACCO SCREENING 1972 HEPATITIS C SCREENING 1977 HIV ONE-TIME SCREENING (18-65 YEARS) 1977 COLOGUARD 2004 COLONOSCOPY 2004 FIT TEST 2004 SIGMOIDOSCOPY 2004 VIRTUAL COLONOSCOPY 2004 ZOSTER VACCINES (1 of 2) 2009 PNEUMOCOCCAL VACCINES (50+ years) (2 of 2 - PCV) 08/29/2020 08/30/2019, 04/20/2018 COLORECTAL CANCER SCREENING 02/08/2022 FOBT 02/08/2022 02/08/2021, 12/23, 12/31/2016, Additional history exists COVID-19 VACCINE (2023- season) 2024 10/31/2022, 03/26/2022, 04/16/2021, Additional history exists ABDOMINAL AORTIC ANEURYSM (AAA) SCREENING 2024 Adult Td,Tdap Booster 05/18/2031 05/18/2021, 017 RSV VACCINE (1 - 1-dose 75+ series) 2034 HEPATITIS A VACCINES Aged Out No long er eligible based on patient's age to complete this topic HIB VACCINES Aged Out No longer eligi ble based on patient's age to complete this topic MENINGOCOCCAL VACCINES (ACWY) Aged Out No longer eligible based on patient's age to complete this topic MENINGOCOCCAL VACCINES (B) Aged Out N o longer eligible based on patient's age to complete this topic Medical Devices Implanted Type Area Barrel Dedenting Machine Operator Device Identifier Shelf Expiration Date Model / Serial / Lot Prosthetic Joint Prosthetic Joint Left: Knee Description:Left Knee Replac ement Screw Screw Right: Hand System Implant No 7 Maxbraid 11mm Button Guide Pin 2.4mm Elbow Toggleloc Ziploop Double Taper Ended Needle Knot Pusher - [id number] Implanted:Qty: 1 on 07/19/2019 by eHnok Crane MD at [facility] Right: Arm [employer] 10/15/2023 [id number] / / [id number] Insurance [facility] MEDICARE REPLACEMENT Member Subscriber Plan / Payer (Ef fective 2021-Present) Name:Kamran Gautam Relation to Subscriber:Self Name:Kamran Gautam Payer ID:[id number] (NAIC) Type:Medicare Address: [place] [phone] [facility] MEDICARE REPLACEMENT [facility] MEDICARE REPLACEMENT [facility] MEDICARE REPLACEMENT [facility]IC[facility] REPLACEMENT [facility] MEDICARE REPLACEMENT [facility] MEDICARE REPLACEMENT [facility] [address] Care Teams Manager Generation Relationship Specialty Start Date End Date Kyaw Fishman MD [address] [place] [address] [place] [address] PCP - General Internal Medicine 07/09/19 Additional Source Comments The information contained in this document represents components of the legal health record. It is not the complete legal health record.[facility]
--- OUTSIDE RECORDS SUMMARY | 2025-02-16 09:40 | XMS_ITS | Encounter Summary ---
Author Organization [facility] Address [address] [place] [address] Phone Care Team Providers Care Roll Scale Worker Name Role Phone Kyaw Fishman MD Primary Care Provider Encounter Details Date Type Department Care Team (Late st Contact Info) Description 07/19/2019 Procedure Pass OR Admitting Dept - Virtual Department [address] [place] [address] Social History Tobacco Use Types Packs/Day Years [...] on file documented as of this encounter Plan of Treatment Not on file documented as of this encounter Visit Diagnoses Not on filedocumented in this encounter Care Teams Roll Scale Worker Relationship Specialty Start Date End Date Kyaw Fishman MD [address] [place] [address] [place] [address] PCP - General Internal Medicine 07/09/19 documented as of this encounter Additional Source Comments The information contained in this document represents components of the legal health record. It is not the complete legal health record.[facility]
[2025-02-16 10:00] VITALS: BP 112/66; PULSE 72; TEMP 36.7; O2SAT 98; BMI 28.1
--- NOTE | 2025-02-16 10:00 | AM.OFFWIN_ITS ---
Intake Vital Signs 02/16/25 10:00 Height 5 ft 8 in Weight 185 lb BMI 28.1 BP 112/66 Blood Pressure Location Rt brachial Position Sitting Pulse 72 Pulse Source Pulse Oximeter Temp 98.1 F Temp Source Oral Pulse Oximetry (%) 98 Oxygen Delivery Method Room Air Intake Visit Reasons: ADULT CARE PROVIDER-ingrown hair discomfort Intake Note: pt presents with irritated lesion under left armpit Patient Tobacco Use Status: Former Tobacco user Allergies codeine (CODEINE) Allergy (Intermediate, Verified 02/16/25 10:03) ITCHING Do you need a note to return to daycare/school/sports/work: No HPI HPI Comments History of Present Illness Details History of Present Illness - The patient is a 64-year-old male pres enting with a painful, hard swelling suspected to be an abscess. - The swelling has been present for almo st two weeks, with no associated fever. - The patient has been applying warm com presses, but the swelling remains hard and has not drained. - There is no history of Methicillin-res istant Staphylococcus aureus (MRSA) infection. Physical Exam General: Cooperative, healthy appearing, comfortable, no acute distress and well developed Orientation: Patient oriented x3 Limitations: No limitations Head: Normal to inspection Ears: Hearing grossly normal bilaterally Nose: Normal External nose present Face and sinus: Normal facial exam Eyes: Appearance normal, both eyes and all related structures Neck: Normal visual inspection and Yes full ROM Respiratory: Normal respiratory effort and able to speak in complete sentences. Skin: left axilla with 1cm round indurated area, no warmth, no drainage; no rashes or lesions noted Neuro: Patient oriented x3 Extremities: Normal to inspection PFSH Medical History Anxiety Asthma Degenerative arthritis Depression Hypercholesteremia Hypertension Loose left total knee arthroplasty Surgical History H/O colonoscopy H/O foot surgery History of surgery on arm History of total left knee replacement Hx of hand surgery Hx of knee surgery Social History Patient Tobacco Use Status: Former Tobacco user Current occupational status: retired Review of Systems Const All systems reviewed & are unremarkable except as noted in HPI and below Physical Exam Vital Signs: Last Vital Signs Temp 98.1 F 02/16/25 10:00 Pulse 72 02/16/25 10:00 BP 112/66 02/16/25 10:00 Pulse Ox 98 02/16/25 10:00 Oxygen Delivery Method Room Air 02/16/25 10:00 BMI result Body Mass Index 28.1 Assessment & Plan Assessment & Plan (1) Abscess of axilla, left: Code(s): L02.412 - Cutaneous abscess of left axilla Plan: Patient was informed and verbally consented to the use of an ambient scribe for clinic note documentation during this visit. 1. Abscess - Initiate oral antibiotics with Keflex (cephalexin) every six hours for one week. - Advise warm compresses several times a day to aid in resolution. - Monitor for improvement by Friday; if worsening, consider switching to doxycycline for possible MRSA coverage. Medications: New cephalexin 500 mg PO Q6H 28 caps 0RF Coding Level of Care Code Est Pt Level 3 (00307) Diagnoses Abscess of axilla, left L02.412
== END 2025-02-16 10:23 | disposition home or self-care (01) ==
PROVIDERS: PCP Internal Medicine; Visit Provider Physician Assistant
DX: L02.412 Cutaneous abscess of left axilla (principal)

== ENCOUNTER → 2025-02-16 09:11 | Outpatient (BNVA) | payer MEDICARE, SELFPAY | PROVIDERS: PCP Internal Medicine; Visit Provider Physician Assistant | DX: L02.412 Cutaneous abscess of left axilla (principal) | CPT/HCPCS: 99212 ==

== ENCOUNTER 2025-02-17 09:38 | Outpatient (REF) | payer MEDICARE, SELFPAY ==
--- OUTSIDE RECORDS SUMMARY | 2024-12-17 05:15 | XMS_ITS ---
Author Organization Kyaw Fishman MD Address [address] [place], [place] [phone] Care Team Providers Care Calibration Checker Name Role Phone Kyaw Fishman Primary Care Provider Allergies Allergen (clinical drug ingredient) Drug/Non Drug Allergy documented on EMR Reaction Allergy Type Onset Date Status codeine codeine (uncoded) itch Allergy Ac tive Results Component Value Reference Range Notes US soft tiss head and/or nec k Reviewed date:12/28/2024 11:52:36 AM Interpretation:12-28-2024 Performing Lab: Notes/Report: [facility] [address] [place] [address] [place] [address] Ultrasound Report Signed Patient: Kamran Gautam MR#: [id number] : 1960 Acct:[id number] Age/Sex: 64 / M ADM Date: 12/22/24 Loc: HO.[facility]GCX Attending Dr: Kyaw Fishman MD Ordering Physician: Kyaw Fishman MD Date of Service: 12/22/24 Procedure(s): US soft tiss head and/or neck Accession Number(s): [id number] cc: Kyaw Fishman MD CLINICAL HISTORY: SUBCUTANEOUS NODULE US of the posterior neck Comparison: None provided Findings: In the area of the patient's lump is a circumscribed hypoechoic 1.0 x 0.9 x 0.6 cm mass with distal acoustic enhancement suggesting a cystic component. There is a questionable faint tract from the mass to the skin surface raising possibility of a sebaceous cyst. There are no other cystic or solid masses in the areas scanned. Impression: 1. Possible sebaceous cyst. Clinical follow-up recommended. [employer] TI-RADS Categories TR1 and TR2 nodules do not have follow-up recommendations TR3 (FNA >= 2.5cm, F/U >= 1.5cm at 1, 3, and 5 yrs) TR4 (FNA >= 1.5cm, F/U >= 1cm at 1, 2, 3, and 5 yrs) TR5 (FNA >= 1cm, F/U >= 0.5cm annually for up to 5 yrs) This document has been electronically signed by: Moi Lema MD on 12/23/2024 10:13:26 Dictated By: Moi Lema MD Signed By: <Electronically signed by Moi Lema MD in OV> 12/23/24 1014 DD/ 1013 TD/TT: 12/23/24 1013 Firepot Operator And Tender: [facility] [address] [place] [address] [place] [address] Ultrasound Report Signed Patient: Gene Gautam MR#: [id number] : 1960 Acct:[id number] Age/Sex: 64 / M ADM Date: 12/22/24 [facility]: Kyaw Fishman MD Ordering Physician: Kyaw Fishman MD Date of Service: 12/22/24 Procedure(s): US sof t tiss head and/or neck Accession Number(s): [id number] cc: Kyaw Fishman MD CLINICAL HISTORY: FREIRE BCUTANEOUS NODULE US of the posterior neck Comparison: None provided Findings: In the area of the p atient's lump is a circumscribed hypoechoic 1.0 x 0.9 x 0.6 cm mass with d istal acoustic enhancement suggesting a cystic component. There is a questiona ble faint tract from the mass to the skin surface raising possibility of a sebaceous cyst. There are no other c ystic or solid masses in the areas scanned. Impression: 1. Possible sebaceou s cyst. Clinical follow-up recommended. [employer] TI-RADS Categories TR1 and TR2 nodules do not have follow-up recommendations TR3 (FNA >= 2.5cm, F /U >= 1.5cm at 1, 3, and 5 yrs) TR4 (FNA >= 1.5cm, F /U >= 1cm at 1, 2, 3, and 5 yrs) TR5 (FNA >= 1cm, F/U >= 0.5cm annually for up to 5 yrs) This document has be en electronically signed by: Moi Lema MD on 12/23/2024 10:13:26 Dictated By: Moi Lema MD Signed By: <Electron icallfely signed by Moi Lema MD in OV> 12/23/24 1014 DD/ 1013 TD/TT: 12/23/24 1013 Firepot Operator And Tender: REASON FOR VISIT lump back of neck pea size hard lump x 2 weeks Medications Medication SIG (Take, Route, Frequency, Duration) Notes Start Date End Date Status Irbesartan-hydroCHLOROthi azide 300-12.5 mg TAKE 1 TABLET DAILY orally once a day for 90 days Active Metoprolol Succinate ER 50 mg TAKE 1 TABLET DAILY ORALLY ONCE PER DAY for 90 days Active Diprolene AF 0.05 % 1 application Externally Once a day for 30 days 08/30/2021 Active ProAir HFA 108 (90 Base) MCG/ACT INHALE 2 PUFFS EVERY 4 HOURS NEEDED Not-Taking Amoxicillin 500 MG 1 capsule Orally charles ry 6 hours Not-Taking Sildenafil Citrate 100 mg TAKE ONE-HALF (1/2) TABLET DAILY NEEDED Active Gabapentin 300 MG TAKE 1 CAPSULE BY [facility] THREE TIMES DAILY for 30 Active Rosuvastatin Calcium 20 mg TAKE 1 TABLET DAILY AT BEDTIME Active buPROPion HCl ER (XL) 300 MG 1 tablet in the morning Orally Once a day Active Albuterol Sulfate HFA 108 (90 Base) MCG/ACT USE 1 INHALATION EVERY 4 HOURS NEEDED Active KlonoPIN 2 MG one tab Orally 2 jacklyn es a day Active Vital Signs Blood pressure systolic 132 mm Hg 12/18/19 25 Blood pressure diastolic 80 mm Hg 025 Height 68.5 in 12/17/2024 Weight 178 lbs 12/17/2024 BMI 26.67 kg/m2 12/17/2024 weight is down 2 pounds [facility] e 08-20-24 Encounters Encounter Location Date Provider Diagnosis Kyaw Fishman MD [address] [facility] [address] [place], [place] [phone] 12/17/2024 Kyaw Fishman Nodule, subcutaneous R22.9 Assessments Encounter Date Diagnosis (ICD Code) Assessment Notes Treatment Notes Treatment Clinical Notes Section Notes 12/17/2024 Nodule, subcutaneous (ICD-10 - R22.9) pending diagnostic testing, order faxed to [facility] dept Plan Of Treatment Treatment Notes Assessment Notes Nodule, subcutaneous pending diagnostic testing, order faxed to [facility] dept Next Appt Details Follow Up: after us, Reason: Provider Name:Kyaw West ier, 03/01/2025 09:30:00 AM, [address] [place] [address], [address], [place], [place], [phone], Progress Notes * JEANETTE KamranDOB: 9 (64 yo M)Acc No.[id number]:12/17/2024 Progress Notes Patient: Kamran VEGA Provider: Kinsey Fishman MD :1960 A ge:64 Y S ex:Male Date:12/17/2024 Address:[address] [place], [place] [phone] Subjective: * Chief Complaints: * 1 . Lump back of neck pea size hard lump x 2 weeks. * HPI: S ymptom(s): patient is a 64 yo male here as emergency. 3 weeks has a lump on the back of his neck. no pain. * ROS: G eneral/Constitutional: Denies C hills. D enies F atigue. D enies F ever. D enies H eadache. E NT: Denies S ore throat. R espiratory: Denies C ough. D enies S hortness of breath at rest. D enies S hortness of breath with exertion. G astrointestinal: Denies D iarrhea. D enies N ausea. * Medical History: c olonoscopy discussed again 2013; colonoscopy 10/12/15 w/Dr. Winters/ tubular adenoma. due in 2020, Right bicep repair on 07/19/2019, Colonoscopy 2021 due in 5 years. * Medications: T aking KlonoPIN 2 MG Tablet one tab Orally 2 times a day , Taking buPROPion HCl ER (XL) 300 MG Tablet Extended Release 24 Hour 1 tablet in the morning Orally Once a day , Taking Albuterol Sulfate HFA 108 (90 Base) MCG/ACT Aerosol Solution USE 1 INHALATION EVERY 4 HOURS NEEDED , Taking Sildenafil Citrate 100 mg Tablet TAKE ONE-HALF (1/2) TABLET DAILY NEEDED , Taking Gabapentin 300 MG Capsule TAKE 1 CAPSULE BY MOUTH THREE TIMES DAILY , Taking Rosuvastatin Calcium 20 mg Tablet TAKE 1 TABLET DAILY AT BEDTIME , Taking Irbesartan-hydroCHLOROthiazide 300-12.5 mg Tablet TAKE 1 TABLET DAILY orally once a day , Taking Metoprolol Succinate ER 50 mg Tablet Extended Release 24 Hour TAKE 1 TABLET DAILY ORALLY ONCE PER DAY , Taking Diprolene AF 0.05 % Cream 1 application Externally Once a day , Not-Taking/PRN ProAir HFA 108 (90 Base) MCG/ACT Aerosol Solution INHALE 2 PUFFS EVERY 4 HOURS NEEDED , Not-Taking/PRN Amoxicillin 500 MG Capsule 1 capsule Orally every 6 hours , Medication List reviewed and reconciled with the patient * Allergies: C odeine: Itch. Objective: * Vitals: H t: 68.5, Wt: 178, BMI:26.67, BP:132/80, Wt-k.74. weight is down 2 pounds since 08-20-24. * Examination: G eneral Examination: GENERAL APPEARANCE: a lert, well hydrated, in no distress.? NECK/THYROID: h as a one inch very hard movable nodule. very superficial. no nodes anywhere on neck.. Assessment: * Assessment: 1. N odule, subcutaneous - R22.9 (Primary) Plan: * Treatment: * Follow Up: a fter us * * The named appointment provid er may or may not be the originator of this progress note, and it is not deemed complete until electronically signed by the appointment provider. Sign off status: Pending * Provider: Kinsey Fishman MD Date: 0 12/17/2024 Generated for Jennifer germain/Henrry/Stephanieitting on: 0 02/17/2025 10:44 AM EDT History and Physical Notes * HPI (History of Present Illness) Category Sub-Category Detail Notes Category Not es Symptom(s) patient is a 64 yo male here as emergency. 3 weeks has a lump on the back of his neck. no pain. Examination Category Sub-Category Detail Notes Category Not es General Examination GENERAL APPEARANCE: alert, w ell hydrated, in no distress NECK/THYROID: has a one inch very hard movable nodule. very superficial. no nodes anywhere on neck.
--- OUTSIDE RECORDS SUMMARY | 2024-12-28 07:30 | XMS_ITS ---
Author Organization Kyaw Fishman MD Address [address] [place], [place] [phone] Care Team Providers Care Print Project Manager Name Role Phone Kyaw Fishman Primary Care Provider [phone] Allergies Allergen (clinical drug ingredient) Drug/Non Drug [...] Gabapentin 300 MG TAKE 1 CAPSULE BY [facility] THREE TIMES DAILY for 30 Active Metoprolol [...] kg/m2 12/28/2024 weight is down 4 pounds [facility] e 12-17-24 Encounters Encounter Location Date Provider Diagnosis Kyaw Fishman MD [address] [place] [address] Drive [address] [place] [phone] 12/28/2024 Kyaw Fishman Sebaceous cyst L72.3 Assessments [...] Follow Up: 4 Weeks, Reason: Provider Name:Kyaw West ier, 03/01/2025 09:30:00 AM, [address] [place] [address], [address], [place], [place], [phone], Progress Notes * Kamran GAUTAMDOB: 9 (64 yo M)Acc No.[id number]:12/28/2024 Patient: Yoli Kamran MITCHELL Provider: Kinsey Fishman MD :1960 A ge:64 Y S ex:Male Date:12/28/2024 Address:[address] [place], [place] [phone] Subjective: * Chief Complaints: * C BACK AFTER US * HPI: S ymptom(s): patient is a 64 yo male here for follow up of recent US. * ROS: G eneral/Constitutional: Denies C hills. D enies F atigue. D enies F ever. D enies H eadache. E NT: Denies S ore throat. R espiratory: Siria Schuster ough. D enlino S hortness of breath at rest. D enies S hortness of breath with exertion. G astrointestinal: Siria Fulton iarrhea. D desi N ausea. * Medical History: * Surgical [...] Fishman MD Date: 0 12/28/2024 Generated for Daniellei jessa/Henrry/eTransmitting on: 0 02/17/2025 10:45 AM EDT History and Physical Notes * [...]
--- OUTSIDE RECORDS SUMMARY | 2025-02-17 03:15 | XMS_ITS ---
Author Organization Kyaw Fishman MD Address [address] [place], [place] [id number] Care Team Providers Care Vice President For Philanthropy Name Role Phone Kyaw Fishman Primary Care Provider [phone] Results Component Value Reference Range Notes Complete Blood Count Auto Di ff (Not yet reviewed by provider) Interpretation: Performing Lab:[facility], [address] [place] [id number] Notes/Report: White Blood Count 9.4 4.8-10.8 X10*3/uL Red Blood Count 4.19 4.60-5.80 X10*6/uL Hemoglobin 13.2 14.0-18.0 g/dl Hematocrit 39.2 42.0-52.0 % Mean Corpuscular Volume 93.6 80.0-98.0 fL Mean Corpuscular Hemoglobin 31.5 27.0-33.0 pg Mean Corpuscular HGB Conc 33.7 31.0-36.0 g/dl Red Cell Distribution Width 12.3 11.0-16.0 % Platelet Count 354 160-400 X10*3/uL Mean Platelet Volume 9.7 9.4-12.4 fL Neutrophils Percent Auto 51.6 45-73 % Imm Gran Pct Auto 0.4 0.0-0.4 % Lymphocytes Percent Auto 30.7 20-40 % Monocytes Percent Auto 12.4 2-11 % Eosinophils Percent Auto 4.1 0-4 % Basophils Percent Auto 0.8 0-2 % NRBC Pct Auto 0.0 0.0-0.2 /100WBC Neutrophils Absolute Auto 4.9 2.0-8.3 x10*3/u L Imm Gran Abs Auto 0.04 0.00-0.03 X10*3/uL Lymphocytes Absolute Auto 2.9 1.2-4.9 X10*3/u L Monocytes Absolute Auto 1.2 0.1-1.2 X10*3/uL Eosinophils Absolute Auto 0.4 0.0-0.4 X10*3/u L Basophils Absolute Auto 0.1 0.0-0.2 X10*3/uL NRBC Abs Auto 0.000 0.0-0.012 X10*3/uL Comprehensive [place]. Panel Fa st (Not yet reviewed by provider) Interpretation: Performing Lab:[address] [phone] Notes/Report: Sodium 141 135-145 mmol/L Potassium 4.1 3.3-5.1 mmol/L Chloride 103 96-108 mmol/L Carbon Dioxide 31 22-29 mmol/L Anion Gap 11 12-20 Blood Urea Nitrogen 14 9-16 mg/dL Creatinine 1.04 0.5-1.4 mg/dL Estimated Glomerular Filt Rate > 60 Chronic Kidney Disease: Estimated GFR < 60 mL/min/1.73m2 Severe Kidney Disease: Estimated GFR < 15 mL/min/1.73m2 Glucose Fasting 99 60-99 mg/dL Calcium 9.0 8.4-10.2 mg/dL Bilirubin Total 0.2 0.0-1.0 mg/dL Aspartate Amino Transferase 22 5-37 U/L Alanine Aminotransferase 26 0-40 U/L Total Protein 7.0 6.5-8.0 g/dL Albumin Level 4.2 3.5-5.0 g/dL Alkaline Phosphatase 64 39-117 U/L Lipid Panel (Not yet reviewe d by provider) Interpretation: Performing Lab:[address] [phone] Notes/Report: Triglycerides 123 <150 mg/dL Desirable Triglyceride: less than 150 mg/dL Borderline High Triglyceride 150-199 mg/dL High Triglyceride: 200-499 mg/dL Very High Triglyceride: greater than or equal to 5OO mg/dL Cholesterol 161 <200 mg/dL Desirable Cholesterol: less than 200 mg/dL Borderline High Cholesterol: 200-239 mg/dL High Cholesterol: greater than 239 mg/dL LDL Cholesterol Calculated 83 <100 mg/dL Desirable LDL: less than 100 mg/dL Near Optimal/Above Optimal LDL: 110-129 mg/dL Borderline High LDL: 130-159 mg/dL High LDL: 160-189 mg/dL Very High LDL: greater than or equal to 190 mg/dL HDL Cholesterol 54 >40 mg/dL Desirable HDL: greater than 40 mg/dL Note: This HDL assay may give artificially low results in patients with liver disease. PSA,Total (Free>4and<10) (No t yet reviewed by provider) Interpretation: Performing Lab:[address] [phone] Notes/Report: PSA,Total (Free>4and<10) 0.59 0.00-4.00 ng/mL A Free PSA was not [...] between 4.0 and 10.0 ng/mL. PSA methodology: Lobo Alinity i Chemiluminescent Microparticle Immunoassay (CMIA) UA ClnCatch+Micro w/rflx Cul t (Not yet reviewed by provider) Interpretation: Performing Lab:[address] [phone] Notes/Report: Urine, Clean Catch Color Urine Yellow Appearance Urine Clear PH 7.0 5.0-9.0 Glucose Urine UA Negative Negative mg/dL Urine Blood Negative Negative Specific [place] - Urine 1.015 1.005-1.025 Urine Protein Negative Neg-Trace mg/dL Urine Ketones Negative Negative mg/dL Nitrite Urine Negative Negative Leukocyte Esterase Urine Negative Negative RBC Urine 0-2 0-2 /HPF WBC Urine 0-5 0-5 /HPF Squamous Epithelial Cell Urine 0-2 0-2 /HPF Bacteria Urine None Seen None Seen Hyaline Casts Urine 0-2 0-2 /LPF REASON FOR VISIT FASTING LABS Encounters Encounter Location Date Provider Diagnosis Kyaw Fishman MD [address] [place] [phone] 02/17/2025 Kyaw Fishman Blood tests for rout ine general physical examination Z00.00 ; Essential hypertension I10 ; Pure hypercholesterolemia E78.00 and Prediabetes R73.09 Assessments Encounter Date Diagnosis (ICD Code) Assessment Notes Treatment Notes Treatment Clinical Notes Section Notes 02/17/2025 Blood tests for rout ine general physical examination (ICD-10 - Z00.00) 02/17/2025 Essential hypertensi on (ICD-10 - I10) 02/17/2025 Pure hypercholesterolemia (ICD-10 - E78.00) 02/17/2025 Prediabetes (ICD-10 - R73.09) Plan Of Treatment Pending Test Test Name Order Date Complete Blood Count Auto Diff 5 Comprehensive [place]. Panel Fast 5 Lipid Panel 02/17/2025 PSA,Total (Free>4and<10) 02/17/2025 UA ClnCatch+Micro w/rflx Cult 02/17/2025 Next Appt Details Provider Name:Kyaw West ier, 03/01/2025 09:30:00 AM, [address], [address], [place], [place], [id number], Progress Notes * Kamran GAUTAMDOB: [birth year] (64 yo M)Acc No.[id number]:02/17/2025 Progress Note Patient: Kamran VEGA Provider: Kinsey Fishman MD :1960 A ge:64 Y S ex:Male Date:02/17/2025 Address:[address] [place], [place] [id number] Subjective: * Chief Complaints: * 1 . FASTING LABS. * Medical History: Objective: * Vitals: Assessment: * Assessment: 1. B lood tests for routine general physical examination - Z00.00 (Primary) 2 .?Essential hypertension - I10 3 . P ure hypercholesterolemia - E78.00 ? 4 . P rediabetes - R73.09 Plan: * Treatment: 2. E ssential hypertension L AB: Complete Blood Count Auto Diff (Collection Date & Time - 02/17/2025 07:15 AM) L AB: Comprehensive [place]. Panel Fast (Collection Date & Time - 02/17/2025 07:15 AM) L AB: Lipid Panel (Collection Date & Time - 02/17/2025 07:15 AM) L AB: PSA,Total (Free>4and<10) (Collection Date & Time - 02/17/2025 07:15 AM) L AB: UA ClnCatch+Micro w/rflx Cult (Collection Date & Time - 02/17/2025 07:15 AM) 3. P ure hypercholesterolemia L AB: Complete Blood Count Auto Diff (Collection Date & Time - 02/17/2025 07:15 AM) L AB: Comprehensive [place]. Panel Fast (Collection Date & Time - 02/17/2025 07:15 AM) L AB: Lipid Panel (Collection Date & Time - 02/17/2025 07:15 AM) L AB: PSA,Total (Free>4and<10) (Collection Date & Time - 02/17/2025 07:15 AM) L AB: UA ClnCatch+Micro w/rflx Cult (Collection Date & Time - 02/17/2025 07:15 AM) 4. P rediabetes L AB: Complete Blood Count Auto Diff (Collection Date & Time - 02/17/2025 07:15 AM) L AB: Comprehensive [place]. Panel Fast (Collection Date & Time - 02/17/2025 07:15 AM) L AB: Lipid Panel (Collection Date & Time - 02/17/2025 07:15 AM) L AB: PSA,Total (Free>4and<10) (Collection Date & Time - 02/17/2025 07:15 AM) L AB: UA ClnCatch+Micro w/rflx Cult (Collection Date & Time - 02/17/2025 07:15 AM) * Procedure Codes: 3 6415 VENIPUNCT, ROUTINE* * * The named appointment provid er may or may not be the originator of this progress note, and it is not deemed complete until electronically signed by the appointment provider. Sign off status: Pending * Provider: Kinsey Fishman MD Date: 02/17/2025 Generated for Jennifer germain/Henrry/Stephanieitting on: 02/17/2025 10:45 AM EDT
[2025-02-17 09:43] LABS: MANUAL DIFF FLAG NO
[2025-02-17 09:49] LABS: Appearance Urine Clear; Glucose Urine UA Negative (Negative); Hematocrit 39.2 % (42.0-52.0); Hemoglobin 13.2 g/dl (14.0-18.0); Imm Gran Abs Auto 0.04 X10*3/uL (0.00-0.03); Imm Gran Pct Auto 0.4 % (0.0-0.4); Lymphocytes Absolute Auto 2.9 X10*3/uL (1.2-4.9); Mean Corpuscular HGB Conc 33.7 g/dl (31.0-36.0); Mean Corpuscular Hemoglobin 31.5 pg (27.0-33.0); Mean Corpuscular Volume 93.6 fL (80.0-98.0); NRBC Abs Auto 0.000 X10*3/uL (0.0-0.012); NRBC Pct Auto 0.0 /100WBC (0.0-0.2); PH 7.0 (5.0-9.0); Platelet Count 354 X10*3/uL (160-400); Red Blood Count 4.19 X10*6/uL (4.60-5.80); Specific Gravity - Urine 1.015 (1.005-1.025); White Blood Count 9.4 X10*3/uL (4.8-10.8)
[2025-02-17 10:06] LABS: Alanine Aminotransferase 26 U/L (0-40); Albumin Level 4.2 g/dL (3.5-5.0); Alkaline Phosphatase 64 U/L (39-117); Anion Gap 11 (12-20); Aspartate Amino Transferase 22 U/L (5-37); Blood Urea Nitrogen 14 mg/dL (9-16); Calcium 9.0 mg/dL (8.4-10.2); Carbon Dioxide 31 mmol/L (22-29); Chloride 103 mmol/L (96-108); Cholesterol 161 mg/dL (<200); Estimated Glomerular Filt Rate > 60; HDL Cholesterol 54 mg/dL (>40); Potassium 4.1 mmol/L (3.3-5.1); Sodium 141 mmol/L (135-145); Total Protein 7.0 g/dL (6.5-8.0); Triglycerides 123 mg/dL (<150)
[2025-02-17 10:30] LABS: PSA,Total (Free>4and<10) 0.59 ng/mL (0.00-4.00)
--- OUTSIDE RECORDS SUMMARY | 2025-02-17 10:45 | XMS_ITS | Encounter Summary ---
Author Organization [facility] Address [address] [place] [address] Phone Care Team Providers Care Manager Strategy & Account Name Role Phone Kyaw Fishman MD Primary Care Provider Encounter Details Date Type Department Care Team (Late st Contact Info) Description 07/09/2019 Procedure Pass [address] [place] [address] Social History Tobacco Use Types Packs/Day Years [...] on filedocumented in this encounter Care Teams Manager Strategy & Account Relationship Specialty Start Date End Date Kyaw Fishman MD [address] [place] [address] [place] [address] PCP - General Internal Medicine 07/09/19 documented as of this encounter Additional Source Comments The information contained in this document represents components of the legal health record. It is not the complete legal health record.[facility]
--- OUTSIDE RECORDS SUMMARY | 2025-02-17 10:45 | XMS_ITS | Patient Health Record ---
Author Organization Kyaw Fishman MD Address [address] [place], [place] [address] Care Team Providers Care Natural Resources Professor Name Role Phone Kyaw Fishman Primary Care Provider [phone] Allergies Allergen (clinical drug ingredient) Drug/Non Drug Allergy documented on EMR Reaction Allergy Type Onset Date Status codeine codeine (uncoded) itch Allergy Ac tive Results Component Value Reference Range Notes Hemoglobin A1c Reviewed date:08/20/2024 10:12:39 AM Interpretation: Performing Lab: Notes/Report: Value 5.1 Liver Panel Reviewed date:08/16/2024 05:10:00 PM Interpretation: Performing Lab:[facility], [address] [place] [phone] Notes/Report: Bilirubin Total 0.3 0.0-1.0 mg/dL Bilirubin Direct 0.1 0.0-0.5 mg/dL Aspartate Amino Transferase 40 5-37 U/L Alanine Aminotransferase 25 0-40 U/L Total Protein 7.2 6.5-8.0 g/dL Albumin Level 3.9 3.5-5.0 g/dL Alkaline Phosphatase 69 39-117 U/L Lipid Panel with Reflex Reviewed date:08/16/2024 05:26:20 PM Interpretation: Performing Lab:[facility], [address] [place] [phone] Notes/Report: Triglycerides 169 <150 mg/dL Desirable Triglyceride: [...] Free/Total Reviewed date:09/07/2024 10:06:45 AM Interpretation: Performing Lab:[facility], [address] [place] [phone] Notes/Report: Testosterone, Total 924 [address]-8524 ng/dL Men with clinically significant hypogonadal symptoms and testosterone values repeatedly in the range of the 200-300 ng/dL or less, may benefit from testosterone treatment after adequate risk and benefits counseling. For additional information, please refer to http://education.[employer].com/fa q/ TotalTestosteroneM [email or web address] (This link is being provided for informational/ educational purposes only.) This test was developed and its analytical performance characteristics have been determined by [employer] [place], [place]. It has not been cleared or approved by the U.S. Food and Drug Administration. This assay has been validated pursuant to the CLIA regulations and is used for clinical purposes. Testosterone, Free 68.0 35.0-155.0 pg/mL This test was developed and its analytical performance characteristics have been determined by [employer] [place], [place]. It has not been cleared or approved by the U.S. Food and Drug Administration. This assay has been validated pursuant to the CLIA regulations and is used for clinical purposes. THIS TEST WAS PERFORMED AT: [employer] [address] [place] [address] ROMAIN SHAW MD,PHD US soft tiss head and/or nec k Reviewed date:12/28/2024 11:52:36 AM Interpretation:12-28-2024 Performing Lab: Notes/Report: [facility] [place] [address] Ultrasound Report Signed Patient: Kamran Gautam MR#: [id number] : 1960 Acct:[id number] Age/Sex: 64 / M ADM Date: 12/22/24 Loc: [facility] Attending Dr: Kyaw Fishman MD Ordering Physician: Kyaw Fishman MD Date of Service: 12/22/24 Procedure(s): US soft tiss head and/or neck Accession Number(s): [id number] cc: Kyaw Fishman MD CLINICAL HISTORY: SUBCUTANEOUS [...] 1. Possible sebaceous cyst. Clinical follow-up recommended. [employer] TI-RADS Categories TR1 and [...] 12/23/24 1014 DD/ 1013 TD/TT: 12/23/24 1013 Earth Moving Technician: [facility] [address] [place] [address] [place] [address] Ultrasound Report Signed Patient: Gene Gautam MR#: [id number] : 1960 Acct:[id number] Age/Sex: 64 / M ADM Date: 12/22/24 [facility] Attending Dr: Kyaw Fishman MD Ordering Physician: Kyaw Fishman MD Date of Service: 12/22/24 Procedure(s): US sof t tiss head and/or neck Accession Number(s): [id number] cc: Kyaw Fishman MD CLINICAL HISTORY: SUBCUTANEOUS [...] sebaceou s cyst. Clinical follow-up recommended. ___ [employer] TI-RADS Categories TR1 and [...] 12/23/24 1014 DD/ 1013 TD/TT: 12/23/24 1013 Earth Moving Technician: Complete Blood Count Auto Di ff (Not yet reviewed by provider) Interpretation: Performing Lab:[facility], [address] [place] [phone] Notes/Report: White Blood Count 9.4 4.8-10.8 X10*3/uL [...] NRBC Abs Auto 0.000 0.0-0.012 X10*3/uL Comprehensive [place]. Panel Fa st (Not yet reviewed by provider) Interpretation: Performing Lab:[facility], [address] [place] [phone] Notes/Report: Sodium 141 135-145 mmol/L Potassium 4.1 [...] yet reviewe d by provider) Interpretation: Performing Lab:[address] [phone] Notes/Report: Triglycerides 123 <150 mg/dL Desirable Triglyceride: [...] t yet reviewed by provider) Interpretation: Performing Lab:[address] [phone] Notes/Report: PSA,Total (Free>4and<10) 0.59 0.00-4.00 ng/mL A [...] (Not yet reviewed by provider) Interpretation: Performing Lab:[facility], [address] [place] [phone] Notes/Report: Urine, Clean Catch Color Urine Yellow Appearance Urine Clear PH 7.0 5.0-9.0 Glucose Urine UA Negative Negative mg/dL Urine Blood Negative Negative Specific [place] - Urine 1.015 1.005-1.025 Urine Protein Negative Neg-Trace mg/dL Urine Ketones Negative Negative mg/dL Nitrite Urine Negative Negative Leukocyte Esterase Urine Negative Negative RBC Urine 0-2 0-2 /HPF WBC Urine 0-5 0-5 /HPF Squamous Epithelial Cell Urine 0-2 0-2 /HPF Bacteria Urine None Seen None Seen Hyaline Casts Urine 0-2 0-2 /LPF Glucose, finger stick Reviewed date:08/20/2024 10:09:11 AM Interpretation: Performing Lab: Notes/Report: Value 109 Jasmin Stokes Reviewed date:08/16/2024 12:36:16 PM Interpretation: Performing Lab:[facility], [address] [place] [phone] Notes/Report: Jasmin Stokes See Note Specimen held [...] Gabapentin 300 MG TAKE 1 CAPSULE BY [facility] THREE TIMES DAILY for 30 Active Metoprolol [...] Administe red TDaP Unknown 06/02/2017 Administered [facility] Fluarix Quadrivalent IM Intramuscular 04/06/2018 Administe red PPSV23 (Pnemovax) IM Intramuscular 04/20/2018 Administered Tetanus Unknown 06/02/2017 Administered Fluarix Quadrivalent IM Intramuscular 02/25/2019 Administe red PPSV23 (Pnemovax) IM Intramuscular 08/30/2019 Administered Fluarix Quadrivalent IM Intramuscular 03/08/2020 Administe red Covid Vaccine Unknown 08/14/2020 Administered Moderna Covid Vaccine Unknown 09/11/2020 Administered Moderna Fluarix Quadrivalent IM Intramuscular [facility] SARS-COV-2 Moderna Unknown 04/16/2021 Administered Fluarix Quadrivalent IM Intramuscular 03/21/2022 [facility] Flu[facility] Quadrivalent IM Intramuscular 03/28/2023 [facility] Flu Vaccine Unknown 09/20/2014 Refused Social [...] Problem Status W/U Status Risk Notes Problem 727446340 Neuropathy (G62.9) Active confirmed Problem 13971285 Anxiety (F41.9) Active confirmed Problem 5065992 Arthritis (M19.90) Active confirmed Problem 49965117 Essential hypert ension (I10) Active confirmed Problem 7331487 Prediabetes (R73.09) Active confirmed Problem 057771934 Anxiety disorder (F41.9) Active confirmed Problem 492163904 Moderate persist ent asthma without complication (J45.40) Active confirmed Problem 89404645 Dysthymia (F34.1) Active confirmed Problem 438857318 Moderate episode of recurrent major depressive disorder (F33.1) Active confirmed Problem Sciatica (75305012) Right sided sciatica (M54.31) Active confirmed Problem 17956774 Tick bite, initi al encounter (W57.XXXA) Active confirmed Problem 894141940 Pure hypercholesterolemia (E78.00) Active confirmed Problem 366776837 Primary osteoart hritis of both hips (M16.0) Active confirmed Problem Decrease in appetite (finding) (71469403) Decreased appetite (R63.0) Active confirmed Vital Signs [...] Kyaw Fishman MD [address] [place] [id number] 08/16/2024 Kyaw Fishman Pure hypercholestero lemia E78.00 and Moderate episode of recurrent major depressive disorder F33.1 Kyaw Fishman MD [address] [place] [id number] 08/30/2024 Kyaw Fishman Moderate episode of recurrent major depressive disorder F33.1 Kyaw Fishman MD [address] [place] [id number] 12/17/2024 Kyaw Fishman Nodule, subcutaneous R22.9 Kyaw Fishman MD [address] [place] [id number] 02/17/2025 Kyaw Fishman Blood tests for rout ine general physical examination Z00.00 ; Essential hypertension I10 ; Pure hypercholesterolemia E78.00 and Prediabetes R73.09 Kyaw Fishman MD [address] [place] [id number] 08/20/2024 Kyaw Fishman Prediabetes R73.09 ; Dysthymia F34.1 ; Essential hypertension I10 and Pure hypercholesterolemia E78.00 Kyaw Fishman MD [address] [place] [id number] 12/28/2024 Kyaw Fishman Sebaceous cyst L72.3 Kyaw Fishman MD [address] [place] [id number] 08/12/2024 Kyaw [address]man MD [address] [place] [id number] 10/07/2024 Kyaw Fishman Essential hypertensi on I10 Kyaw Fishman MD [address] [place] [id number] 10/07/2024 Kyaw Fishman Essential hypertensi on I10 Kyaw Fishman MD [address] [place] [id number] 10/29/2024 Kyaw Fishman Acute eczema L30.9 Assessments Encounter Date Diagnosis (ICD Code) Assessment Notes Treatment Notes Treatment Clinical Notes Section Notes 08/16/2024 Pure hypercholesterolemia (ICD-10 - E78.00) 08/30/2024 Moderate episode of recurrent major depressive disorder (ICD-10 - F33.1) 12/17/2024 Nodule, subcutaneous (ICD-10 - R22.9) pending diagnostic testing, order faxed to [facility] CS dept 02/17/[address] tests [address] ine general physical examination (ICD-10 - Z00.00) 08/20/2024 Prediabetes (ICD-10 - R73.09) doing well, [...] recurrent major depressive disorder (ICD-10 - F33.1) 02/17/2025 Essential hypertensi on (ICD-10 - I10) 08/20/2024 Dysthymia (ICD-10 - F34.1) going to get ketamine in [place] 02/17/2025 Pure hypercholesterolemia (ICD-10 - E78.00) 08/20/2024 Essential hypertensi on (ICD-10 - I10) stable, will continue current regiment 02/17/2025 Prediabetes (ICD-10 - R73.09) 08/20/2024 Pure hypercholesterolemia (ICD-10 - E78.00) stable, will contnue current regiment Plan Of Treatment Pending Test Test Name Order Date Electrocardiogram (EKG) 10/20/2015 Ultrasound : Veneous Doppler 03/18/2011 XR CHEST 2 VIEW PA & LAT 04/12/2014 Complete Blood Count Auto Diff 5 Comprehensive [place]. Panel Fast 5 Lipid Panel 02/17/2025 PSA,Total (Free>4and<10) 02/17/2025 Testosterone, Free/Total 08/16/2024 UA ClnCatch+Micro w/rflx Cult 02/17/2025 Next Appt Details Provider Name:Kyaw thurston, 03/01/2025 09:30:00 AM, [address] [place] [address], [address], [place], [place], [id number], Insurance Providers Payer Name Payer Address Payer Phone Subscriber Number Group Number Insured Name Patient Relationship to Insured Coverage Start Date Coverage End Date [facility] are [employer] [address] [address] [place] [address] [id number] Kamran Gautam Self - patient is the insured Medical (General) History Medical History History ICD Code colonoscopy discussed again 2013; colonoscopy 10/12/15 w/Dr. Winters/ tubular adenoma. due in 2020 right bicep repair on 07/19/2019 colonoscopy 2021 due in 5 years Surgical History Surgery Date(Month/Year) left total knee arthoplasty by Dr. Jimenez 03/2016
--- OUTSIDE RECORDS SUMMARY | 2025-02-17 10:45 | XMS_ITS | Clinical Summary ---
Author Organization [facility] Address [address] [place] [phone] Phone Care Team Providers Care Barback Name Role Phone Kyaw Fishman MD Primary [...] this topic Medical Devices Implanted Type Area Fender Repairer Device Identifier Shelf Expiration Date Model / Serial / Lot Prosthetic Joint Prosthetic Joint Left: Knee Description:Left Knee Replac ement Screw Screw Right: Hand System Implant No 7 Maxbraid 11mm Button Guide Pin 2.4mm Elbow Toggleloc Ziploop Double Taper Ended Needle Knot Pusher - [id number] Implanted:Qty: 1 on 07/19/2019 by Henok Crane MD at [facility] Right: Arm [employer] 10/15/2023 [id number] / / [id number] Insurance [facility] MED[facility] REPLAC[facility] Member Subscriber Plan / Payer (Ef fective 2021-Present) Name:Kamran Gautam Relation to Subscriber:Self Name:Kamran Gautam Payer ID:[id number] (NAIC) Type:Medicare Address: [place] [id number] [facility] MEDICARE REPLACEMENT [facility] MED[facility] REPLACEMENT [facility] MED[facility] REPLACEMENT [facility] MED[facility] REPLACEMENT [facility] MED[facility] REPL[facility]EMENT [facility] MED[facility] REPLACEMENT [facility] RE[facility] Care Teams Barback Relationship Specialty Start Date End Date Kyaw Fishman MD [address] [place] [address] [place] [address] PCP - General Internal Medicine 07/09/19 Additional Source Comments The information contained in this document represents components of the legal health record. It is not the complete legal health record.[facility]
--- OUTSIDE RECORDS SUMMARY | 2025-02-17 10:45 | XMS_ITS | Encounter Summary ---
Author Organization [facility] Address [address] [place] [address] Phone Care Team Providers Care Armor Senior Sergeant Name Role Phone Kyaw Fishman MD Primary Care Provider Encounter Details Date Type Department Care Team (Late st Contact Info) Description 07/19/2019 Procedure Pass OR Admitting Dept - Virtual Department [address] [place] [address] Social History Tobacco Use Types Packs/Day Years [...] on filedocumented in this encounter Care Teams Armor Senior Sergeant Relationship Specialty Start Date End Date Kyaw Fishman MD [address] [place] [address] [place] [address] PCP - General Internal Medicine 07/09/19 documented as of this encounter Additional Source Comments The information contained in this document represents components of the legal health record. It is not the complete legal health record.[facility]
--- OUTSIDE RECORDS SUMMARY | 2025-02-17 10:45 | XMS_ITS | Clinical Summary ---
Author Organization [facility] Address [address] [place] [address] Care Team Providers Care Fence Installer Name Role Phone Unavailable Primary Care Provider Unavailabl e Social History Tobacco Use Types Packs/Day Years Used Date Smoking Tobacco: Never Assessed Sex and Gender Information Value Date Recorded Sex Assigned at Not on file Gender Identity Not on file Sexual Orientation Not on file Plan of Treatment Not on file
== END 2025-02-17 09:39 | disposition home or self-care (01) ==
LOC: HO.LNP 09:38
PROVIDERS: Visit Provider Internal Medicine
DX: Z00.00 Encounter for general adult medical examination without abnormal findings (principal); I10 Essential (primary) hypertension; E78.00 Pure hypercholesterolemia, unspecified; R73.09 Other abnormal glucose; Z12.5 Encounter for screening for malignant neoplasm of prostate
CPT/HCPCS: 80053; 80061; 81001; 84153; 85025